=== PATIENT | female | born 1940 | race Caucasian/White ===

== ENCOUNTER → 2017-06-29 | Outpatient (CLI) | payer MEDICARE, OTHER ==
[~2017-06-29] MED LIST: ASP325 PO; HCTZ25 PO; KET10 PO; LISI-362 PO; METF-410 PO; PER PO; ROSU5TAB8 PO
--- NOTE | 2017-06-29 15:00 | RADIOLOGY IMAGING REPORT ---
FACILITY: [facility] PATIENT NAME: Alyssa Harper : 1940 MR: [id number] V: [id number] EXAM DATE: ORDERING PHYSICIAN: BLUE MCCOLLUM TECHNOLOGIST: Location: [facility] Patient: Alyssa Harper : 1940 Visit/Account:[id number] Date of Sevice: 06/29/2017 Exam type: CHEST PA AND LAT History: Cough, shortness of breath, difficulty breathing x3 days Comparison: October 15, 2016. Findings: There is mild increased peribronchial markings throughout the lungs. No lobar infiltrate seen. Ther e is no evidence of pleural effusions or overt pulmonary edema. Cardiac silhouette is normal in size . IMPRESSION: 1. Mild increased perihilar bronchial thickening throughout the lungs may represent an acute peribro nchial inflammatory process Report Dictated By: Marva Josue MD at 06/29/2017 2:52 PM Report E-Signed By: Marva Josue MD at 06/29/2017 2:56 PM WSN:[id number]
== END ==
LOC: RAD 13:37
PROVIDERS: ATTEND Family Medicine
DX: R91.8 Other nonspecific abnormal finding of lung field (principal)
CPT/HCPCS: 71046

== ENCOUNTER 2017-07-01 15:23 | Inpatient (IN) | payer MEDICARE, OTHER ==
[~2017-07-01] VITALS: Ht 165.1 cm; Wt 81.6 kg
[~2017-07-01 15:23] MED LIST changes: -METF-410 PO; -ROSU5TAB8 PO
--- NOTE | 2017-07-01 15:25 | ER Report ---
History and Physical Time Seen By MD: 15:24 Hx. of Stated Complaint: cough sob since tuesday HPI/ROS 77 year old female active smoker who stopped last tuesday, fever cough congestion body aches since tuesday finished zpack 1 day ago Remainder of the 14 system rev: Yes Allergies: Coded Allergies: Penicillins (Verified Allergy, Intermediate, FELT FUNNY, 07/01/17) Uncoded Allergies: msg (Adverse Reaction, Intermediate, HEADACHE, 01/24/12) Home Meds Reported Medications Metformin Hcl (METFORMIN HCL) 500 Mg Tablet, 1 TAB PO BID, TAB 07/01/17 Rosuvastatin Calcium (CRESTOR) 5 Mg Tablet, 5 MG PO QDAY 07/01/17 Hydrochlorothiazide (HYDROCHLOROTHIAZIDE (OR EQUIV)) 25 Mg Tab, 25 MG PO QDAY 01/18/12 Lisinopril (Lisinopril) 10 Mg Tablet, 10 MG PO QDAY 01/18/12 Discontinued Reported Medications Ketorolac Tromethamine (Toradol) 10 Mg Tab, 10 MG PO Q6H, #16 TAKE WITH FOOD. 01/25/12 Oxycodone/Acetaminophen (OXYCODONE/ACETAMINOPHEN 5MG/325 MG) 5 Mg/325 Mg Tab, 1 - 2 TAB PO Q4H Y, #30 01/25/12 Past Medical/Surgical History Strip headaches, hypertension, COPD, arthritis, Hx Smoking: Yes (PPD) Smoking Status: Former Smoker (5 days ) Exposure to Second Hand Smoke?: No Hx Substance Use Disorder: No Hx Alcohol Use: No Family History of: HTN Constitutional Vital Sign - Last 24 Hours 07/01/17 07/01/17 07/01/17 07/01/17 15:28 15:29 15:30 15:38 Pulse 101 86 Resp 20 B/P (MAP) 129/72 129/72 (91) Pulse Ox 76 95 O2 Delivery Room Air O2 Flow Rate 3.0 07/01/17 07/01/17 07/01/17 07/01/17 15:40 15:50 15:53 16:08 Pulse 81 84 81 80 Resp 12 16 Pulse Ox 94 94 07/01/17 07/01/17 07/01/17 07/01/17 16:23 16:32 16:38 16:43 Pulse ??? 83 86 B/P (MAP) 113/69 (84) Pulse Ox 96 95 07/01/17 07/01/17 07/01/17 07/01/17 16:58 17:00 17:13 17:27 Pulse 81 81 B/P (MAP) 120/68 (85) 130/65 (86) Pulse Ox 95 94 07/01/17 07/01/17 07/01/17 07/01/17 17:28 17:30 17:43 17:48 Pulse 77 79 77 B/P (MAP) 124/73 (90) Pulse Ox 89 94 96 07/01/17 07/01/17 07/01/17 07/01/17 17:53 18:00 18:08 18:23 Pulse 75 78 75 B/P (MAP) 122/68 (86) Pulse Ox 96 95 95 07/01/17 07/01/17 07/01/17 07/01/17 18:30 18:38 18:53 19:00 Pulse 75 78 B/P (MAP) 117/84 (95) 117/84 (95) Pulse Ox 96 07/01/17 07/01/17 07/01/17 07/01/17 19:08 19:23 19:30 19:38 Pulse 79 77 76 B/P (MAP) 125/73 (90) Pulse Ox 91 91 90 07/01/17 19:43 Pulse 73 Pulse Ox 92 Intake and Output 07/01/17 07/01/17 07/02/17 15:00 23:00 07:00 Intake Total 250 ml Balance 250 ml Physical Exam General Appearance: [The patient is alert, has no immediate need for airway protection and no current signs of toxicity.] [ ] Eyes: Pupils equal and round no injection. Respiratory: Coarse breath sounds bilaterally Cardiac: regular rate and rhythm [ ] Gastrointestinal: Abdomen is soft and non tender, no masses, bowel sounds normal. Musculoskeletal: Neck: Neck is supple and non tender. Extremities have full range of motion and are non tender. Skin: No rashes or lesions. [ ] DIFFERENTIAL DIAGNOSIS: After history and physical exam differential diagnosis was considered for bronchitis, pneumonia influenza [ ] Medical Decision Making Data Points Result Diagram: 07/01/17 1548 07/01/17 1548 Laboratory Hematology Test 07/01/17 00:00 07/01/17 15:48 07/01/17 17:48 Urine Color Yellow Urine Clarity Clear Urine pH 5.0 pH (4.8-9.5) Urine Specific [place] 1.008 Urine Protein Negative mg/dL (NEGATIVE) Urine Glucose (UA) Negative mg/dL (NEGATIVE) Urine Ketones Negative mg/dL (NEGATIVE) Urine Blood Negative (NEGATIVE) Urine Nitrite Negative (NEGATIVE) Urine Bilirubin Negative (NEGATIVE) Urine Urobilinogen 2.0 mg/dL (0.2-1.9) Urine Leukocyte Esterase Negative (NEGATIVE) Urine RBC <1 /HPF (0-2/HPF) Urine WBC <1 /HPF (0-5/HPF) Urine Squamous Epithelial Cells Many /LPF (</=FEW) Urine Bacteria Few /HPF (NONE-FEW) Urine Mucus None /HPF (NONE-FEW) Influenza Virus Type A (PCR) Negative (NEGATIVE) Influenza Virus Type B (PCR) Negative (NEGATIVE) Red Blood Count 5.63 M/uL (4.17-5.56) Mean Corpuscular Volume 85.7 fL (80.0-96.0) Mean Corpuscular Hemoglobin 29.4 pg (26.0-33.0) Mean Corpuscular Hemoglobin Concent 34.3 g/dL (32.0-36.0) Red Cell Distribution Width 13.8 % (11.5-14.5) Mean Platelet Volume 7.5 fL (7.2-11.1) Neutrophils (%) (Auto) 82.3 % (39.4-72.5) Lymphocytes (%) (Auto) 8.5 % (17.6-49.6) Monocytes (%) (Auto) 8.7 % (4.1-12.4) Eosinophils (%) (Auto) 0.2 % (0.4-6.7) Basophils (%) (Auto) 0.3 % (0.3-1.4) Nucleated RBC Relative Count (auto) 0.1 /100WBC Neutrophils # (Auto) 10.7 K/uL (2.0-7.4) Lymphocytes # (Auto) 1.1 K/uL (1.3-3.6) Monocytes # (Auto) 1.1 K/uL (0.3-1.0) Eosinophils # (Auto) 0.0 K/uL (0.0-0.5) Basophils # (Auto) 0.0 K/uL (0.0-0.1) Nucleated RBC Absolute Count (auto) 0.02 K/uL Peripheral Blood Smear Yes Y/N Venous Blood pH 7.42 (7.31-7.41) Sodium Level 125 mmol/L (137-145) Potassium Level 4.0 mmol/L (3.5-5.0) Chloride Level 85 mmol/L (98-107) Carbon Dioxide Level 30 mmol/L (22-31) Blood Urea Nitrogen 16 mg/dl (7-18) Creatinine 0.70 mg/dl (0.52-1.04) Glomerular Filtration Rate Calc > 60.0 Random Glucose 144 mg/dl (75-110) Lactate 1.8 mmol/L (0.7-2.1) Calcium Level 8.2 mg/dl (8.4-10.2) Magnesium Level 1.6 mg/dl (1.7-2.2) Total Bilirubin 0.9 mg/dl (0.2-1.3) Aspartate Amino Transf (AST/SGOT) 42 U/L (0-35) Alanine Aminotransferase (ALT/SGPT) 47 U/L (0-56) Alkaline Phosphatase 75 U/L (0-126) Total Protein 5.8 gm/dl (6.3-8.2) Albumin 3.1 g/dl (3.5-5.0) Troponin I 0.091 ng/ml Chemistry Test 07/01/17 00:00 07/01/17 15:48 07/01/17 17:48 Urine Color Yellow Urine Clarity Clear Urine pH 5.0 pH (4.8-9.5) Urine Specific [place] 1.008 Urine Protein Negative mg/dL (NEGATIVE) Urine Glucose (UA) Negative mg/dL (NEGATIVE) Urine Ketones Negative mg/dL (NEGATIVE) Urine Blood Negative (NEGATIVE) Urine Nitrite Negative (NEGATIVE) Urine Bilirubin Negative (NEGATIVE) Urine Urobilinogen 2.0 mg/dL (0.2-1.9) Urine Leukocyte Esterase Negative (NEGATIVE) Urine RBC <1 /HPF (0-2/HPF) Urine WBC <1 /HPF (0-5/HPF) Urine Squamous Epithelial Cells Many /LPF (</=FEW) Urine Bacteria Few /HPF (NONE-FEW) Urine Mucus None /HPF (NONE-FEW) Influenza Virus Type A (PCR) Negative (NEGATIVE) Influenza Virus Type B (PCR) Negative (NEGATIVE) White Blood Count 13.0 k/uL (4.5-11.0) Red Blood Count 5.63 M/uL (4.17-5.56) Hemoglobin 16.5 g/dL (12.0-16.0) Hematocrit 48.2 % (34.0-47.0) Mean Corpuscular Volume 85.7 fL (80.0-96.0) Mean Corpuscular Hemoglobin 29.4 pg (26.0-33.0) Mean Corpuscular Hemoglobin Concent 34.3 g/dL (32.0-36.0) Red Cell Distribution Width 13.8 % (11.5-14.5) Platelet Count 242 K/uL (150-450) Mean Platelet Volume 7.5 fL (7.2-11.1) Neutrophils (%) (Auto) 82.3 % (39.4-72.5) Lymphocytes (%) (Auto) 8.5 % (17.6-49.6) Monocytes (%) (Auto) 8.7 % (4.1-12.4) Eosinophils (%) (Auto) 0.2 % (0.4-6.7) Basophils (%) (Auto) 0.3 % (0.3-1.4) Nucleated RBC Relative Count (auto) 0.1 /100WBC Neutrophils # (Auto) 10.7 K/uL (2.0-7.4) Lymphocytes # (Auto) 1.1 K/uL (1.3-3.6) Monocytes # (Auto) 1.1 K/uL (0.3-1.0) Eosinophils # (Auto) 0.0 K/uL (0.0-0.5) Basophils # (Auto) 0.0 K/uL (0.0-0.1) Nucleated RBC Absolute Count (auto) 0.02 K/uL Peripheral Blood Smear Yes Y/N Venous Blood pH 7.42 (7.31-7.41) Glomerular Filtration Rate Calc > 60.0 Lactate 1.8 mmol/L (0.7-2.1) Calcium Level 8.2 mg/dl (8.4-10.2) Magnesium Level 1.6 mg/dl (1.7-2.2) Total Bilirubin 0.9 mg/dl (0.2-1.3) Aspartate Amino Transf (AST/SGOT) 42 U/L (0-35) Alanine Aminotransferase (ALT/SGPT) 47 U/L (0-56) Alkaline Phosphatase 75 U/L (0-126) Total Protein 5.8 gm/dl (6.3-8.2) Albumin 3.1 g/dl (3.5-5.0) Troponin I 0.091 ng/ml Urinalysis Test 07/01/17 00:00 Urine Color Yellow Urine Clarity Clear Urine pH 5.0 pH (4.8-9.5) Urine Specific [place] 1.008 Urine Protein Negative mg/dL (NEGATIVE) Urine Glucose (UA) Negative mg/dL (NEGATIVE) Urine Ketones Negative mg/dL (NEGATIVE) Urine Blood Negative (NEGATIVE) Urine Nitrite Negative (NEGATIVE) Urine Bilirubin Negative (NEGATIVE) Urine Urobilinogen 2.0 mg/dL (0.2-1.9) Urine Leukocyte Esterase Negative (NEGATIVE) Urine RBC <1 /HPF (0-2/HPF) Urine WBC <1 /HPF (0-5/HPF) Urine Squamous Epithelial Cells Many /LPF (</=FEW) Urine Bacteria Few /HPF (NONE-FEW) Urine Mucus None /HPF (NONE-FEW) EKG/Imaging EKG Interpretation EKG at 1645 normal sinus rhythm ventricular rate 82 QTc is 420 7 repeat EKG at 1730 normal sinus rhythm ventricular rate 80 QTCs for 24 Imaging FACILITY: [facility] [place] PATIENT NAME: Alyssa Harper : 1940 MR: [id number] V: [id number] EXAM DATE: ORDERING PHYSICIAN: PROSPER ARANGO TECHNOLOGIST: Location: [facility] [place]: Alyssa Harper : 1940 Visit/Account:[id number] Date of Sevice: 07/01/2017 CHEST PA AND LAT COMPARISONS: June 29, 2017 ADDITIONAL PERTINENT HISTORY: Fever FINDINGS: Cardiomediastinal silhouette: Negative. 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 Lung price: Continued findings of mild underlying peribronchial thickening with findings concerning for developing infiltrate involving the right middle lobe. Pleural spaces: Negative. Osseous structures: Negative. Surrounding soft tissues: Negative. IMPRESSION: 1. Continued findings of mild underlying bronchitic change with findings concerning for developing infiltrate involving the right middle lobe. Report Dictated By: Wu Dee MD at 07/01/2017 4:37 PM Report E-Signed By: Wu Dee MD at 07/01/2017 4:38 PM WSN:[id number] ED Course/Re-evaluation Clinical Indication for ER IV: Hydration ED Course Patient failed outpatient treatment for pneumonia and finished Z-Pee yesterday progressive shortness of breath sats are 77% without oxygen she does not have oxygen at home was given 3 L of oxygen here with DuoNeb treatment sats raise to the mid 90s also noted patient has a sodium of 125 was given some normal saline decided 100 mL an hour in the emergency room and noted she is on HCTZ and lisinopril Re-evaluation Physical evaluated by Dr. Den Huizar in the emergency room patient will be admitted for further evaluation Decision to Disposition Date: Jul 01, 2017 Decision to Disposition Time: 18:31 Depart Departure Latest Vital Signs Vital Signs Date Time Temp Pulse Resp B/P (MAP) Pulse Ox O2 Delivery O2 Flow Rate FiO2 07/01/17 19:43 73 92 07/01/17 19:30 125/73 (90) 07/01/17 15:50 16 07/01/17 15:30 3.0 07/01/17 15:28 Room Air Impression: Primary Impression: Pneumonia Additional Impressions: Hypoxia Hyponatremia Condition: Improved Disposition: Admitted from ER Referrals: BLUE MCCOLLUM DO (PCP) Problem Qualifiers PROSPER ARANGO Jul 01, 2017 15:25
[2017-07-01] MEDS ORDERED: NS(*) 0.9% 1000 ML BAG 1,000 ML IV ONE (15:28)
[2017-07-01] MEDS ORDERED: ALBUTEROL/IPRATROPIUM 3 ML NEB NEB ONE (15:30)
[2017-07-01] MEDS ORDERED: ROSU5TAB8 PO (15:35)
[2017-07-01] MEDS ORDERED: METF-410 PO (15:35)
[2017-07-01 16:12] LABS: PLATELET COUNT, AUTOMATED 242 K/uL (150-450)
[2017-07-01] MEDS ORDERED: MAGNESIUM SUL/D5W* 1 GM/100 ML 100 ML IVPB ONE (16:35)
--- NOTE | 2017-07-01 16:44 | RADIOLOGY IMAGING REPORT ---
FACILITY: [facility] PATIENT NAME: Alyssa Harper : 1940 MR: [id number] V: [id number] EXAM DATE: ORDERING PHYSICIAN: PROSPER ARANGO TECHNOLOGIST: Location: [facility] [place] Patient: Alyssa Harper : 1940 Visit/Account:[id number] Date of Sevice: 07/01/2017 CHEST PA AND LAT COMPARISONS: June 29, 2017 ADDITIONAL PERTINENT HISTORY: Fever FINDINGS: Cardiomediastinal silhouette: Negative. 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 Lung price: Continued findings of mild underlying peribronchial thickening with findings concerning for developing infiltrate involving the right middle lobe. Pleural spaces: Negative. Osseous structures: Negative. Surrounding soft tissues: Negative. IMPRESSION: 1. Continued findings of mild underlying bronchitic change with findings concerning for developing in filtrate involving the right middle lobe. Report Dictated By: Wu Dee MD at 07/01/2017 4:37 PM Report E-Signed By: Wu Dee MD at 07/01/2017 4:38 PM WSN:[id number]
[2017-07-01] MEDS ORDERED: ASPIRIN 81 MG CHEW PO ONE (16:50)
[2017-07-01] MEDS ORDERED: LEVOFLOXACIN/D5W 750 MG/150 ML 150 ML IVPB ONE (17:05)
--- NOTE | 2017-07-01 17:16 | EKG ---
FACILITY: [facility] PATIENT NAME: LUBA BRITO : [id number] MR: [id number] V: [id number] EXAM DATE: ORDERING PHYSICIAN: PROSPER ARANGO TECHNOLOGIST: DORIS Test Reason : SOB Blood Pressure : / mmHG Vent. Rate : 082 BPM Atrial Rate : 082 BPM P-R Int : 182 ms QRS Dur : 084 ms QT Int : 366 ms P-R-T Axes : 052 -27 049 degrees QTc Int : 427 ms Normal sinus rhythm R wave progression consistent with an old ant/sep [place] vs lead placement No ST-T abnormalities No Previous to compare Confirmed by MEGAN GARCIA ([id number]) on 07/01/2017 6:38:13 PM Referred By: MAIA Confirmed By:MEGAN GARCIA
--- NOTE | 2017-07-01 17:45 | EKG ---
FACILITY: [facility] PATIENT NAME: LUBA BRITO : [id number] MR: [id number] V: [id number] EXAM DATE: ORDERING PHYSICIAN: PROSPER ARANGO TECHNOLOGIST: DORIS Test Reason : REPEAT Blood Pressure : / mmHG Vent. Rate : 080 BPM Atrial Rate : 080 BPM P-R Int : 194 ms QRS Dur : 082 ms QT Int : 368 ms P-R-T Axes : 051 -42 025 degrees QTc Int : 424 ms Normal sinus rhythm Left axis deviation Poor R wave progression consistent with an old ant/sep [place] vs lead placement No ST-T abnormalities When compared with ECG of 01-JUL-2017 16:45, Relatively unchanged Confirmed by MEGAN GARCIA ([id number]) on 07/01/2017 6:39:23 PM Referred By: MAIA Confirmed By:MEGAN GARCIA
[2017-07-01] MEDS ORDERED: GUAIFENESIN/DEXTROMETHORPHAN 5 ML PO PRN (20:05)
[2017-07-01] MEDS ORDERED: ALBUTEROL 2.5 MG/3 ML NEB NEB PRN (20:05)
[2017-07-01] MEDS ORDERED: ACETAMINOPHEN 325 MG TAB PO PRN (20:05)
[2017-07-01] MEDS ORDERED: BENZONATATE 100 MG CAP PO PRN (20:05)
[2017-07-01] MEDS ORDERED: INSULIN HUM LISPRO 100 UN/ML 3 ML VIAL SUBQ PRN (20:05)
[2017-07-01 20:26] VITALS: BP 129/72
--- NOTE | 2017-07-01 20:40 | History & Physical ---
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 The cough started about a week ago. She reports clear sputum production with the cough. She saw her PCP about 4 days ago. She had a CXR that was concerning for a developing pneumonia and was started on azithromycin. Her cough has not improved, so she called her PCP's office and they directed her to the ER. She denies f/c/diarrhea/nausea/cp/sob/orthopnea. She has had mild constipation. She hasn't been able to sleep well because of the cough. She woke up with a matted right eye today and noticed some swelling under the eye. She denies any vision changes, eye pain, or eye itchiness. She has been on Lisinopril for many years. She stopped smoking 4 days ago, but admits to smoking for over 50 years at about 1/2 ppd. She reports really increasing her fluid intake for the last couple of days. Also, she had normal labs except elevated Hgb through the health fair a couple of weeks ago. In the ER, she was noted to have some increased WOB and hypoxia. She was given a DuoNeb and Levofloxacin. History Problems: (1) HTN (hypertension) Status: Chronic (2) Hyperlipemia Status: Chronic (3) T2DM (type 2 diabetes mellitus) Status: Chronic (4) Macular degeneration (5) History of cholecystectomy Home Meds Reported Medications Metformin Hcl (METFORMIN HCL) 500 Mg Tablet, 1 TAB PO BID, TAB 07/01/17 Rosuvastatin Calcium (CRESTOR) 5 Mg Tablet, 5 MG PO QDAY 07/01/17 Hydrochlorothiazide (HYDROCHLOROTHIAZIDE (OR EQUIV)) 25 Mg Tab, 25 MG PO QDAY 01/18/12 Lisinopril (Lisinopril) 10 Mg Tablet, 10 MG PO QDAY 01/18/12 Discontinued Reported Medications Ketorolac Tromethamine (Toradol) 10 Mg Tab, 10 MG PO Q6H, #16 TAKE WITH FOOD. 01/25/12 Oxycodone/Acetaminophen (OXYCODONE/ACETAMINOPHEN 5MG/325 MG) 5 Mg/325 Mg Tab, 1 - 2 TAB PO Q4H Y, #30 01/25/12 Allergies: Coded Allergies: Penicillins (Verified Allergy, Intermediate, FELT FUNNY, 07/01/17) Uncoded Allergies: msg (Adverse Reaction, Intermediate, HEADACHE, 01/24/12) Other Social/Family Hx No alcohol use. Lives alone. Hx Smoking: Yes (PPD) Review of Systems All Systems Reviewed/Normal: Yes, Except as Noted Exam Vital Signs Vital Signs Date Time Temp Pulse Resp B/P (MAP) Pulse Ox O2 Delivery O2 Flow Rate FiO2 07/01/17 19:58 75 91 07/01/17 19:30 125/73 (90) 07/01/17 15:50 16 07/01/17 15:30 3.0 07/01/17 15:28 Room Air General Appearance: Alert, Awake, No Acute Distress Neuro: No Gross deficits Eyes: PERRLA, Other (Injected sclera diffusely R>L with matting medially bilaterally) ENT: Moist Mucous Membranes, Posterior Pharynx Clear Cardiovascular: Regular Rate and Rhythm, No JVD Respiratory: Clear to Auscultation GI: Abd Soft and Non-Tender Extremities: No Edema Integumentary: No Jaundice, No Cyanosis Medical Decision Making Data Points Result Diagram: 07/01/17 1548 07/01/17 1548 Item Value Date Time Neutrophils (%) (Auto) 82.3 % H 07/01/17 1548 Lymphocytes (%) (Auto) 8.5 % L 07/01/17 1548 Monocytes (%) (Auto) 8.7 % 07/01/17 1548 Eosinophils (%) (Auto) 0.2 % L 07/01/17 1548 Basophils (%) (Auto) 0.3 % 07/01/17 154 Nucleated RBC Relative Count (auto) 0.1 /100WBC 07/01/17 1548 Venous Blood pH 7.42 H 07/01/17 1548 Lactate 1.8 mmol/L 07/01/17 1548 Magnesium Level 1.6 mg/dl L 07/01/17 1548 Troponin I 0.091 ng/ml 07/01/17 1748 Troponin I 0.110 ng/ml 07/01/17 1548 Total Bilirubin 0.9 mg/dl 07/01/17 1548 Aspartate Amino Transf (AST/SGOT) 42 U/L H 07/01/17 1548 Alanine Aminotransferase (ALT/SGPT) 47 U/L 07/01/17 1548 Alkaline Phosphatase 75 U/L 07/01/17 1548 Calcium Level 8.2 mg/dl L 07/01/17 1548 Influenza Virus Type A (PCR) Negative 07/01/17 0000 Influenza Virus Type B (PCR) Negative 07/01/17 0000 Sodium Level 125 mmol/L *L 07/01/17 1548 EKG / Imaging EKG Interpretation Vent. Rate : 080 BPM Atrial Rate : 080 BPM P-R Int : 194 ms QRS Dur : 082 ms QT Int : 368 ms P-R-T Axes : 051 -42 025 degrees QTc Int : 424 ms Normal sinus rhythm Left axis deviation Poor R wave progression consistent with an old ant/sep ND vs lead placement No ST-T abnormalities When compared with ECG of 01-JUL-2017 16:45, Relatively unchanged Confirmed by MEGAN GARCIA ([id number]) on 07/01/2017 6:39:23 PM Imaging CXR - 1. Continued findings of mild underlying bronchitic change with findings concerning for developing infiltrate involving the right middle lobe. Assessment and Plan Problems: (1) Bronchitis Status: Acute Assessment & Plan: She presented with about a weeks worth of coughing, hypoxia and leukocytosis. CXR was reported as concerning for a developing infiltrate in the RML, but compared to 2017 CXR it looks unchanged. Likely, with her long smoking h/o she has COPD and has developed an acute bronchitis. She was started on Levofloxacin in the ER, which will be continued. She is to be started on DuoNebs and Prednisone. We will try Tessalon Perles, Robitussin DM, Mucinex and albuterol prn for the cough. (2) Hyponatremia Status: Acute Assessment & Plan: Likely, secondary to the bronchitis and the excessive fluid intake. Will get a U Sodium and U Osm. She reports normal health fair labs about 2 weeks ago. She is having difficulty giving a urine sample so will have staff check a PVR with the bladder US after voiding. (3) Elevated troponin Status: Acute Assessment & Plan: It is in the borderline region. ECG without acute changes. Will follow troponin. (4) Conjunctivitis Status: Acute Assessment & Plan: She has injected sclera bilaterally R>L with matting bilaterally, so will start Ciprofloxacin eye drops. (5) Polycythemia Status: Chronic Assessment & Plan: Secondary to smoking and possibly chronic hypoxia. Will follow. (6) T2DM (type 2 diabetes mellitus) Status: Chronic Assessment & Plan: She only takes metformin 500mg qday. Will hold for now and check glucose AC and HS with SSI level 2 to cover. (7) Hyperlipemia Status: Chronic Assessment & Plan: Continue chronic Crestor. (8) HTN (hypertension) Status: Chronic Assessment & Plan: Continue chronic HCTZ and lisinopril with parameters. Copies to: BLUE MCCOLLUM DO Venous Thromboembolism Antithrombotics Is Pt On Any Antithrombotics?: No Exam Sepsis Risk: No Definite Risk MEGAN GARCIA MD Jul 01, 2017 20:40
[2017-07-01] MEDS: ROSUVASTATIN CALCIUM 10 MG TAB PO SCH ×2 (21:00→21:24)
[2017-07-01] MEDS: guaiFENesin 600 MG TABCR PO SCH (21:23)
[2017-07-01] MEDS: CIPROFLOXACIN HCL 0.3% OU SCH (21:24)
[2017-07-01] MEDS: predniSONE 20 MG TAB PO SCH (21:24)
[2017-07-01 23:01] VITALS: BP 112/77
[2017-07-02 03:03] VITALS: BP 123/74
[2017-07-02] MEDS: ALBUTEROL/IPRATROPIUM 3 ML NEB NEB SCH ×3 (05:31→17:14)
[2017-07-02 06:38] LABS: PLATELET COUNT, AUTOMATED 235 K/uL (150-450)
[2017-07-02 08:17] VITALS: BP 133/86
[2017-07-02] MEDS ORDERED: HYDROCHLOROTHIAZIDE 25 MG TAB PO SCH (09:00)
[2017-07-02] MEDS: CIPROFLOXACIN HCL 0.3% OU SCH ×4 (09:50→21:02)
[2017-07-02] MEDS: guaiFENesin 600 MG TABCR PO SCH ×2 (09:51→21:02)
[2017-07-02] MEDS: LISINOPRIL 10 MG TAB PO SCH (09:51)
[2017-07-02] MEDS: metFORMIN HCL XR 500 MG TABCR PO SCH ×2 (09:51→21:02)
[2017-07-02] MEDS: predniSONE 20 MG TAB PO SCH (09:51)
[2017-07-02] MEDS: ENOXAPARIN 40 MG/0.4ML SYR SC SCH (09:52)
[2017-07-02 11:02] VITALS: BP 127/76
--- NOTE | 2017-07-02 11:08 | Hospitalist Progress Note ---
Subjective Progress Notes Subjective This patient was admitted for bronchitis. She had no acute events overnight. Patient Complains of: Cardiovascular: No: Chest Pain Respiratory: No: Shortness of Breath Physical Exam Vital Signs Date Time Temp Pulse Resp B/P (MAP) Pulse Ox O2 Delivery O2 Flow Rate FiO2 07/02/17 08:17 97.8 69 18 133/86 (102) 94 Nasal Cannula 2.0 Intake and Output 07/03/17 07:00 Intake Total 600 ml Balance 600 ml Intake Oral 600 ml # Voids 1 # Bowel Movements 1 Cardiovascular: Regular Rate and Rhythm Respiratory: Clear to Auscultation Result Diagram: 07/02/17 0607 07/02/17 0607 Item Value Date Time Sputum Culture - Preliminary Resulted 07/01/17 1741 Sputum Expectorated Blood Culture - Preliminary Resulted 07/01/17 1602 Blood Peripheral Draw NO GROWTH AFTER 1 DAY, REINCUBATED Blood Culture - Preliminary Resulted 07/01/17 1548 Blood Peripheral Draw NO GROWTH AFTER 1 DAY, REINCUBATED Assessment and Plan Problems: (1) Bronchitis Status: Acute Assessment & Plan: She presented with about a weeks worth of coughing, hypoxia and leukocytosis. CXR was reported as concerning for a developing infiltrate in the RML, but compared to 2017 CXR it looks unchanged. Likely, with her long smoking h/o she has COPD and has developed an acute bronchitis. She was started on Levofloxacin in the ER, which will be continued. She is to be started on DuoNebs and Prednisone. We will try Tessalon Perles, Robitussin DM, Mucinex and albuterol prn for the cough. (2) Hyponatremia Status: Acute Assessment & Plan: Her urine is dilute, but she is excreted an inappropriate amount of sodium. This is most likely exacerbated by her hydrochlorothiazide. We have discontinued this and placed her on a fluid restriction. A repeat chemistry is ordered for the morning. (3) Elevated troponin Status: Acute Assessment & Plan: Her troponin was equivocal, but her EKG's have not shown any changes. (4) Conjunctivitis Status: Acute Assessment & Plan: She has injected sclera bilaterally R>L with matting bilaterally, so will start Ciprofloxacin eye drops. (5) Polycythemia Status: Chronic Assessment & Plan: Secondary to smoking and possibly chronic hypoxia. Will follow. (6) T2DM (type 2 diabetes mellitus) Status: Chronic Assessment & Plan: She is on chronic treatment with metformin and we have also added sliding scale level #2. (7) Hyperlipemia Status: Chronic Assessment & Plan: Continue chronic Crestor. (8) HTN (hypertension) Status: Chronic Assessment & Plan: She is on chronic treatment with lisinopril. Her hydrochlorothiazide has been held as above. Exam Sepsis Risk: No Definite Risk SHARI ARREGUIN DO Jul 02, 2017 11:08
[2017-07-02 15:45] VITALS: BP 107/62
[2017-07-02 16:29] VITALS: Ht 165.1 cm; Wt 81.6 kg
[2017-07-02] MEDS ORDERED: LEVOFLOXACIN 750 MG TAB PO SCH (18:00)
[2017-07-02] MEDS ORDERED: LEVOFLOXACIN/D5W 750 MG/150 ML 150 ML IVPB SCH (18:30)
[2017-07-02 19:18] VITALS: BP 142/90
[2017-07-02] MEDS: ROSUVASTATIN CALCIUM 10 MG TAB PO SCH (21:03)
[2017-07-03 02:16] VITALS: BP 122/77
[2017-07-03] MEDS: ALBUTEROL/IPRATROPIUM 3 ML NEB NEB SCH ×2 (05:17→11:20)
[2017-07-03 07:29] VITALS: BP 118/82
[2017-07-03] MEDS: LISINOPRIL 10 MG TAB PO SCH ×2 (09:00→10:04)
[2017-07-03] MEDS: metFORMIN HCL XR 500 MG TABCR PO SCH (10:05)
[2017-07-03] MEDS: ENOXAPARIN 40 MG/0.4ML SYR SC SCH (10:05)
[2017-07-03] MEDS: predniSONE 20 MG TAB PO SCH (10:06)
[2017-07-03] MEDS: guaiFENesin 600 MG TABCR PO SCH (10:06)
[2017-07-03] MEDS: CIPROFLOXACIN HCL 0.3% OU SCH (10:06)
[2017-07-03] MEDS ORDERED: CIPR2.5D14 OU (10:27)
[2017-07-03] MEDS ORDERED: LEVO750T27 PO (10:27)
[2017-07-03] MEDS ORDERED: PRED20TA6 PO (10:27)
--- NOTE | 2017-07-03 10:39 | Hospitalist Depart ---
Discharge Summary Reason for Hosp/Final Diag: (1) Bronchitis Status: Acute Hospital Course & Plan: She presented with about a weeks worth of coughing, hypoxia and leukocytosis. CXR was reported as concerning for a developing infiltrate in the RML, but compared to 2017 CXR it looks unchanged. Likely, with her long smoking h/o she has COPD and has developed an acute bronchitis. She was started on Levofloxacin/Prednisone and is improving. She will go home on Levofloxacin and a Prednisone taper. (2) Hyponatremia Status: Acute Hospital Course & Plan: Likely, secondary to HCTZ use. Improving off of HCTZ. Will have her repeat the BMP as an outpatient. (3) Elevated troponin Status: Acute Hospital Course & Plan: Her troponin was equivocal and trended to normal. Likely, related to strain from illness. EKG's have not shown any changes. No chest pain. (4) Conjunctivitis Status: Acute Hospital Course & Plan: She has injected sclera bilaterally R>L with matting bilaterally, so was started pm Ciprofloxacin eye drops. She has had significant improvement. Home with a few more days of treatment. (5) Polycythemia Status: Chronic Hospital Course & Plan: Secondary to smoking and possibly chronic hypoxia. Stable since 2011. (6) T2DM (type 2 diabetes mellitus) Status: Chronic Hospital Course & Plan: She is on chronic treatment with metformin and her glucose is controlled even being on prednisone. (7) Hyperlipemia Status: Chronic Hospital Course & Plan: Continue chronic Crestor. (8) HTN (hypertension) Status: Chronic Hospital Course & Plan: She is on chronic treatment with lisinopril. Her hydrochlorothiazide will be stopped. Follow up with her PCP to check BP off HCTZ. Departure Weight (Pounds): 180 Result Diagram: 07/02/17 0607 07/03/17 0539 Item Value Date Time White Blood Count 10.3 k/uL 01/18/12 1034 White Blood Count 13.0 k/uL H 07/01/17 1548 White Blood Count 14.0 k/uL H 07/02/17 0607 Hemoglobin 16.5 g/dL H 07/01/17 1548 Hemoglobin 16.5 g/dL H 07/02/17 0607 Hemoglobin 17.0 g/dL H 01/18/12 1034 Platelet Count 242 K/uL 07/01/17 1548 Platelet Count 235 K/uL 07/02/17 0607 Venous Blood pH 7.42 H 07/01/17 1548 Sodium Level 125 mmol/L *L 07/01/17 1548 Sodium Level 125 mmol/L *L 07/02/17 0607 Chloride Level 85 mmol/L *L 07/01/17 1548 Chloride Level 87 mmol/L L 07/02/17 0607 Blood Urea Nitrogen 16 mg/dl 07/01/17 1548 Creatinine 0.70 mg/dl 07/01/17 1548 Blood Urea Nitrogen 12 mg/dl 07/02/17 0607 Creatinine 0.60 mg/dl 07/02/17 0607 Magnesium Level 1.6 mg/dl L 07/01/17 1548 Total Bilirubin 0.9 mg/dl 07/01/17 1548 Aspartate Amino Transf (AST/SGOT) 42 U/L H 07/01/17 1548 Alanine Aminotransferase (ALT/SGPT) 47 U/L 07/01/17 1548 Alkaline Phosphatase 75 U/L 07/01/17 1548 Troponin I 0.110 ng/ml 07/01/17 1548 Troponin I 0.091 ng/ml 07/01/17 1748 Troponin I 0.026 ng/ml 07/02/17 0607 Lactate 1.8 mmol/L 07/01/17 1548 Sodium Level 131 mmol/L L 07/03/17 0539 Potassium Level 3.8 mmol/L 07/03/17 0539 Chloride Level 91 mmol/L L 07/03/17 0539 Carbon Dioxide Level 31 mmol/L 07/03/17 0539 Creatinine 0.70 mg/dl 07/03/17 0539 Blood Urea Nitrogen 13 mg/dl 07/03/17 0539 Urine Osmolality 317 mosm/K L 07/01/17 0000 Urine Random Sodium 35 MEQ/L 07/01/17 0000 Influenza Virus Type A (PCR) Negative 07/01/17 0000 Influenza Virus Type B (PCR) Negative 07/01/17 0000 Blood cultures from 07/01 without growth x2. SPEC #: [id number] ELIZABETH: 07/01/17 STATUS: COMP REQ #: [id number] RECD: 07/01/[address]: PROSPER ARANGO MANAGER [employer] -C SOURCE: SPUTUM EXP ENTR: 07/01/17-1533 [facility] DR: BLUE MCCOLLUM DO [facility]: ORDERED: CULT SPUTUM Procedure Result Verified SPUTUM CULTURE Final 07/03/17-08 NORMAL RESPIRATORY RUPALI PRESENT. NO PATHOGENS ISOLATED Imaging CXR - 1. Continued findings of mild underlying bronchitic change with findings concerning for developing infiltrate involving the right middle lobe. EKG Vent. Rate : 082 BPM Atrial Rate : 082 BPM P-R Int : 182 ms QRS Dur : 084 ms QT Int : 366 ms P-R-T Axes : 052 -27 049 degrees QTc Int : 427 ms Normal sinus rhythm R wave progression consistent with an old ant/sep [place] vs lead placement No ST-T abnormalities No Previous to compare Confirmed by MEGAN GARCIA ([id number]) on 07/01/2017 6:38:13 PM Condition: Improved Discharge: Home Discharge Instructions Home Meds Active Scripts Prednisone (PREDNISONE) 20 Mg Tablet, 20 MG PO QDAY, #5 1 pill a day for 3 days, then 1/2 pill a day for 3 days Prov:MEGAN GARCIA MD 07/03/17 Levofloxacin 750 Mg Tab (LEVOFLOXACIN 750 MG TAB) 750 Mg Tablet, 750 MG PO QDAY@ 1800, #3 Prov:MEGAN GARCIA MD 07/03/17 Ciprofloxacin Hcl (CIPROFLOXACIN HCL) 2.5 Ml Drops, 0 ML OU QID, #1 BOTTLE Continue until eyes are clear for 48 hours or have taken for 5 days. Prov:MEGAN GARCIA MD 4/15/18 Reported Medications Metformin Hcl (METFORMIN HCL) 500 Mg Tablet, 1 TAB PO BID, TAB 07/01/17 Rosuvastatin Calcium (CRESTOR) 5 Mg Tablet, 5 MG PO QDAY 07/01/17 Lisinopril (Lisinopril) 10 Mg Tablet, 10 MG PO QDAY 01/18/12 Discontinued Reported Medications Hydrochlorothiazide (HYDROCHLOROTHIAZIDE (OR EQUIV)) 25 Mg Tab, 25 MG PO QDAY 01/18/12 Ketorolac Tromethamine (Toradol) 10 Mg Tab, 10 MG PO Q6H, #16 TAKE WITH FOOD. 01/25/12 Oxycodone/Acetaminophen (OXYCODONE/ACETAMINOPHEN 5MG/325 MG) 5 Mg/325 Mg Tab, 1 - 2 TAB PO Q4H Y, #30 01/25/12 Diet: Diabetic Activity: As Tolerated Special Instructions: Follow up with your PCP in 1-2 weeks to follow up O2 requirement and BP. Go to the ER for worsening SOB or fevers. Get a BMP/CBC in 5-7 days to follow up the sodium and hemoglobin. Copies to: BLUE MCCOLLUM DO Venous Thromboembolism Antithrombotics Is Pt On Any Antithrombotics?: No MEGAN GARCIA MD Jul 03, 2017 10:39
[2017-07-04] MEDS ORDERED: INFLUENZA VIRUS VAC 0.5 ML SYR IM ONLY ONE (09:00)
== END 2017-07-03 12:55 | disposition home or self-care (01) | DRG 191 ==
LOC: ER 15:47 → MED 19:50
PROVIDERS: ADMIT Internal Medicine; ATTEND Internal Medicine
DX: J44.0 Chronic obstructive pulmonary disease with (acute) lower respiratory infection (principal); E87.1 Hypo-osmolality and hyponatremia; T50.2X5A Adverse effect of carbonic-anhydrase inhibitors, benzothiadiazides and other diuretics, initial encounter; D75.1 Secondary polycythemia; E11.9 Type 2 diabetes mellitus without complications; I10 Essential (primary) hypertension; J20.9 Acute bronchitis, unspecified; E78.5 Hyperlipidemia, unspecified; H10.33 Unspecified acute conjunctivitis, bilateral; F17.210 Nicotine dependence, cigarettes, uncomplicated; R09.02 Hypoxemia; H35.30 Unspecified macular degeneration; D72.829 Elevated white blood cell count, unspecified; Z79.4 Long term (current) use of insulin; Z88.0 Allergy status to penicillin; Z90.49 Acquired absence of other specified parts of digestive tract
CPT/HCPCS: 36415; 36416; 71046; 81001; 82040; 82247; 82310; 82374; 82435; 82565; 82800; 82947; 82948; 83605; 83735; 83935; 84075; 84132; 84155; 84295; 84300; 84450; 84460; 84484; 84520; 85025; 87040; 87070; 87502; 93005; 94640; 94667; 94668; 99285; J1650; J1956; J3475; J7030; J7512

== ENCOUNTER 2017-07-04 06:49 | Outpatient (RCR) | payer MEDICARE, OTHER ==
[2017-07-02 16:29] VITALS: BMI 29.9
[~2017-07-04 06:49] MED LIST changes: +CIPR2.5D14 OU; +LEVO750T27 PO; +METF-411 PO; +PRED20TA6 PO; +ROSU5TAB8 PO
--- NOTE | 2017-07-04 14:20 | Transitional Care Management ---
Assessment Visit Type: Telephone Visit Spoke with: Alyssa Cardiac: WNL Respiratory: WNL Except Respiratory Comment: 07/04 Wearing O2 all the time, sats go down with activity, but she does not feel short of breath. GI: Nutrition: WNL Wt Gain/Loss: WNL Constipation?: No : WNL Musculoskeletal, Exercise: WNL Mobility/Falls: WNL Integumentary: WNL Feeling of Well Being: WNL Feeling of Well Being Comment: 07/04 I feel really good except for this cough. Socialization: WNL Socialization Comment: 07/04 good family support. Pain/Management: WNL Following Discharge Instructio: Yes TCM Discharge Criteria Transitional Care Comment: 07/02 She consents to the program. We discussed home and hospital meds, Bronchitis, with handout provided. 07/04 Call was brief, home visit scheduled for 1100 tomorrow. LEXY QUIROZ Jul 04, 2017 14:20
--- NOTE | 2017-07-05 13:53 | Transitional Care Management ---
Assessment Visit Type: Home Visit Spoke with: Alyssa Cardiac: WNL Except Cardiac Comment: 07/05 Reviewed meds, she is taking her BP a few times a day and keeping a record. BP during visit 149/87. Respiratory: WNL Except Respiratory Comment: 07/04 Wearing O2 all the time, sats go down with activity, but she does not feel short of breath. 07/05 She removes O2 for short tasks, lowest sat was 82% after taking out the trash. GI: Nutrition: WNL Wt Gain/Loss: WNL Constipation?: No : WNL Musculoskeletal, Exercise: WNL Musculoskeletal, Excercise Com: 07/05 With the oxygen she can't go to her regular pool excercises, but we discussed alternatives. She will ask at the rec center for suggestions. Mobility/Falls: WNL Mobility Comment: 07/05 We discussed fall prevention, and increased risk of falls with O2 tubing. Integumentary: WNL Feeling of Well Being: WNL Feeling of Well Being Comment: 07/04 I feel really good except for this cough. 07/05 She really wants to not have the oxygen, and her cough persists. Socialization: WNL Socialization Comment: 07/04 good family support. Pain/Management: WNL Scheduled Follow-Up with Provi: Yes (07/05 She will call for an appt with Dr Franklin for next week.) Questions for Future PCP Visit: 07/05 Need for continued O2, possible need for BP regimen changes since HCTZ has been stopped, Glucometer? Needed or Pending Tests: Yes (07/05 She has an order for labs.) Following Discharge Instructio: Yes TCM Discharge Criteria Medication Knowledge: 07/05 Reviewed discharge meds, prednisone taper. She was taking her Metformin daily, it is ordered BID, I clearified this with her. Transitional Care Comment: 07/02 She consents to the program. We discussed home and hospital meds, Bronchitis, with handout provided. 07/04 Call was brief, home visit scheduled for 1100 tomorrow. 07/05 Home visit, Discharge meds reviewed (she was taking metformin QD instead of BID), discussed oxygen use and safety, fall prevention. Handouts on O2 use in the home, O2 saftey, and fall prevention in older adults provided. Her home was not cluttered, open walkways, no throw rugs or trip hazzards, with two levels. The stairs she manages with ease. Copies to: BLUE FRANKLIN MICHAEL K Jul 05, 2017 13:53
--- NOTE | 2017-07-08 11:35 | Transitional Care Management ---
Assessment Spoke with: Alyssa Cardiac: WNL Except Cardiac Comment: 07/05 Reviewed meds, she is taking her BP a few times a day and keeping a record. BP during visit 149/87. Respiratory: WNL Except Respiratory Comment: 07/04 Wearing O2 all the time, sats go down with activity, but she does not feel short of breath. 07/05 She removes O2 for short tasks, lowest sat was 82% after taking out the trash. 07/08 At [facility] for PFT's and labs. States O2 up to 91% at home. Can have O2 delivered to [place], [place] for a vacation but states she doesn't want to go if she has to use O2 at that low elevation while having a vacation. Reports improved symptoms GI: Nutrition: WNL Wt Gain/Loss: WNL Constipation?: No : WNL Musculoskeletal, Exercise: WNL Musculoskeletal, Excercise Com: 07/05 With the oxygen she can't go to her regular pool excercises, but we discussed alternatives. She will ask at the [facility] center for suggestions. 07/08 states she has less strength. Enc her participation in Pulm Rehab next week as their goal is to preserve function Mobility/Falls: WNL Mobility Comment: 07/05 We discussed fall prevention, and increased risk of falls with O2 tubing. Integumentary: WNL Integumentary Comment: 07/08 She Called [facility] re: "big blood red spot on my hip". I visited in cardio after PFT"s and she has a yellow/green/blue/red area about 4"x3" on her RLQ where a lovenox inj was documented as being given. Reassured this was a fading bruise and not to be alarmed. Feeling of Well Being: WNL Feeling of Well Being Comment: 07/04 I feel really good except for this cough. 07/05 She really wants to not have the oxygen, and her cough persists. 07/08 Although arrangements are pending for delivery of O2 to her room in [place], she declines to have it if traveling. Reassured her they could have 2 Large replacement tanks and a concentrator delivered to her hotel prior to her arrival. Enc to f/u with PCP for direction. Socialization: WNL Socialization Comment: 07/04 good family support. Pain/Management: WNL Scheduled Follow-Up with Cheryl: Yes (07/05 She will call for an appt with Dr Franklin for next week. 07/08 Has appt for 2:30) Questions for Future PCP Visit: 07/05 Need for continued O2, possible need for BP regimen changes since HCTZ has been stopped, Glucometer? Needed or Pending Tests: Yes (07/05 She has an order for labs. 07/08 getting lab today) Following Discharge Instructio: Yes TCM Discharge Criteria Medication Knowledge: 07/05 Reviewed discharge meds, prednisone taper. She was taking her Metformin daily, it is ordered BID, I clearified this with her. 07/08 states she is still taking 1/2 tab of prednisone Transitional Care Comment: 07/02 She consents to the program. We discussed home and hospital meds, Bronchitis, with handout provided. 07/04 Call was brief, home visit scheduled for 1100 tomorrow. 07/05 Home visit, Discharge meds reviewed (she was taking metformin QD instead of BID), discussed oxygen use and safety, fall prevention. Handouts on O2 use in the home, O2 saftey, and fall prevention in older adults provided. Her home was not cluttered, open walkways, no throw rugs or trip hazzards, with two levels. The stairs she manages with ease. 07/08 Enc to discuss O2 use with PCP as she may not need it at lower elevation and that an overnoc oximetry test may be ordered. Enc use of O2 as ordered and to document O2 readings with her pulseox at home. EVANGELINA OSBORNE Jul 08, 2017 11:34
--- NOTE | 2017-07-14 14:38 | Transitional Care Management ---
Assessment Visit Type: Telephone Visit Spoke with: Alyssa Cardiac: WNL Except Cardiac Comment: 07/05 Reviewed meds, she is taking her BP a few times a day and keeping a record. BP during visit 149/87. Respiratory: WNL Except Respiratory Comment: 07/04 Wearing O2 all the time, sats go down with activity, but she does not feel short of breath. 07/05 She removes O2 for short tasks, lowest sat was 82% after taking out the trash. 07/08 At [facility] for PFT's and labs. States O2 up to 91% at home. Can have O2 delivered to [place], [place] for a vacation but states she doesn't want to go if she has to use O2 at that low elevation while having a vacation. Reports improved symptoms 07/14 She is very eager to stop using oxygen. She had an appt with Dr Franklin this week, who told her to keep using the oxygen. GI: Nutrition: WNL Wt Gain/Loss: WNL Constipation?: No : WNL Musculoskeletal, Exercise: WNL Musculoskeletal, Excercise Com: 07/05 With the oxygen she can't go to her regular pool excercises, but we discussed alternatives. She will ask at the rec center for suggestions. 07/08 states she has less strength. Enc her participation in Pulm Rehab next week as their goal is to preserve function 07/14 Pulm rehab starts tuesday. Mobility/Falls: WNL Mobility Comment: 07/05 We discussed fall prevention, and increased risk of falls with O2 tubing. Integumentary: WNL Integumentary Comment: 07/08 She Called [facility] re: "big blood red spot on my hip". I visited in cardio after PFT"s and she has a yellow/green/blue/red area about 4"x3" on her RLQ where a lovenox inj was documented as being given. Reassured this was a fading bruise and not to be alarmed. Feeling of Well Being: WNL Feeling of Well Being Comment: 07/04 I feel really good except for this cough. 07/05 She really wants to not have the oxygen, and her cough persists. 07/08 Although arrangements are pending for delivery of O2 to her room in [place], she declines to have it if traveling. Reassured her they could have 2 Large replacement tanks and a concentrator delivered to her hotel prior to her arrival. Enc to f/u with PCP for direction. Socialization: WNL Socialization Comment: 07/04 good family support. Pain/Management: WNL Scheduled Follow-Up with Provi: No Questions for Future PCP Visit: 07/05 Need for continued O2, possible need for BP regimen changes since HCTZ has been stopped, Glucometer? Needed or Pending Tests: Yes (07/05 She has an order for labs. 07/08 getting lab today) Following Discharge Instructio: Yes TCM Discharge Criteria Medication Knowledge: 07/05 Reviewed discharge meds, prednisone taper. She was taking her Metformin daily, it is ordered BID, I clearified this with her. 07/08 states she is still taking 1/2 tab of prednisone 07/14 Dr Franklin restarted HCTZ 25mg Transitional Care Comment: 07/02 She consents to the program. We discussed home and hospital meds, Bronchitis, with handout provided. 07/04 Call was brief, home visit scheduled for 1100 tomorrow. 07/05 Home visit, Discharge meds reviewed (she was taking metformin QD instead of BID), discussed oxygen use and safety, fall prevention. Handouts on O2 use in the home, O2 saftey, and fall prevention in older adults provided. Her home was not cluttered, open walkways, no throw rugs or trip hazzards, with two levels. The stairs she manages with ease. 07/08 Enc to discuss O2 use with PCP as she may not need it at lower elevation and that an overnoc oximetry test may be ordered. Enc use of O2 as ordered and to document O2 readings with her pulseox at home. 07/14 Wearing 1L NC, starts Pulm Rehab on Tuesday. Really wants to not wear oxygen. LEXY QUIROZ Jul 14, 2017 14:38
--- NOTE | 2017-07-18 10:19 | Transitional Care Management ---
Assessment Visit Type: Telephone Visit (07/18 George) Cardiac: WNL Except Cardiac Comment: 07/05 Reviewed meds, she is taking her BP a few times a day and keeping a record. BP during visit 149/87. Respiratory: WNL Except Respiratory Comment: 07/04 Wearing O2 all the time, sats go down with activity, but she does not feel short of breath. 07/05 She removes O2 for short tasks, lowest sat was 82% after taking out the trash. 07/08 At [facility] for PFT's and labs. States O2 up to 91% at home. Can have O2 delivered to [place], [place] for a vacation but states she doesn't want to go if she has to use O2 at that low elevation while having a vacation. Reports improved symptoms 07/14 She is very eager to stop using oxygen. She had an appt with Dr Franklin this week, who told her to keep using the oxygen. 07/18 Stated that she is still using O2 at 1L and finds when she goes downstairs (without O2) and returns up the stairs her sats are going down to 80-83% but when she puts her O2 back on she quickly returns to 90-91% I suggested that she not go up/down without her O2. She also stated when she went to Pul Rehab-they had her walk down a long hallway for 6 min without O2 and she dropped to 73%. They informed her she needed to cont wwearing her O2. She starts OPul Rehab tomorrow July 19. She also had a Pulmonary Test which sthey inofrmed her was COPD and states no one had diagnosed this previously. ? why Dr Franklin didn't call and tell her. I suggested she call Dr Franklin and ask her. GI: Nutrition: WNL Wt Gain/Loss: WNL Constipation?: No : WNL Musculoskeletal, Exercise: WNL Musculoskeletal, Excercise Com: 07/05 With the oxygen she can't go to her regular pool excercises, but we discussed alternatives. She will ask at the rec center for suggestions. 07/08 states she has less strength. Enc her participation in Pulm Rehab next week as their goal is to preserve function 07/14 Pulm rehab starts tuesday. Mobility/Falls: WNL Mobility Comment: 07/05 We discussed fall prevention, and increased risk of falls with O2 tubing. Integumentary: WNL Integumentary Comment: 07/08 She Called [facility] re: "big blood red spot on my hip". I visited in cardio after PFT"s and she has a yellow/green/blue/red area about 4"x3" on her RLQ where a lovenox inj was documented as being given. Reassured this was a fading bruise and not to be alarmed. Feeling of Well Being: WNL Feeling of Well Being Comment: 07/04 I feel really good except for this cough. 07/05 She really wants to not have the oxygen, and her cough persists. 07/08 Although arrangements are pending for delivery of O2 to her room in [place], she declines to have it if traveling. Reassured her they could have 2 Large replacement tanks and a concentrator delivered to her hotel prior to her arrival. Enc to f/u with PCP for direction. Socialization: WNL Socialization Comment: 07/04 good family support. Pain/Management: WNL Scheduled Follow-Up with Provi: No Questions for Future PCP Visit: 07/05 Need for continued O2, possible need for BP regimen changes since HCTZ has been stopped, Glucometer? Needed or Pending Tests: Yes (07/05 She has an order for labs. 07/08 getting lab today) Following Discharge Instructio: Yes TCM Discharge Criteria Medication Knowledge: 07/05 Reviewed discharge meds, prednisone taper. She was taking her Metformin daily, it is ordered BID, I clearified this with her. 07/08 states she is still taking 1/2 tab of prednisone 07/14 Dr Franklin restarted HCTZ 25mg Transitional Care Comment: 07/02 She consents to the program. We discussed home and hospital meds, Bronchitis, with handout provided. 07/04 Call was brief, home visit scheduled for 1100 tomorrow. 07/05 Home visit, Discharge meds reviewed (she was taking metformin QD instead of BID), discussed oxygen use and safety, fall prevention. Handouts on O2 use in the home, O2 saftey, and fall prevention in older adults provided. Her home was not cluttered, open walkways, no throw rugs or trip hazzards, with two levels. The stairs she manages with ease. 07/08 Enc to discuss O2 use with PCP as she may not need it at lower elevation and that an overnoc oximetry test may be ordered. Enc use of O2 as ordered and to document O2 readings with her pulseox at home. 07/14 Wearing 1L NC, starts Pulm Rehab on Tuesday. Really wants to not wear oxygen.s 07/18 George called asking alot of questions about her hospital stay and what has been happening since dc. Asked what she was diagnosed with on dc- I related from her DC summary that she had broncitis. She kept questioning about the new diagnosis of COPD and why sit wasns't diagnosed in hospital. I tried to expain to her that was due to the fact that the Pulmonary test was not stoll until past DC. She also wanted to know why she had a bruise on her hip and stated that she had been getting blood thineners while in hospital. I explained to her because of the blood thinners and injection that it had caused a small bruise where she was injected but that should be going away. She is to start Pul Rehab tomorrow. I encouraged her to call Dr Franklin with further questions about diagnosis. Copies to: BLUE FRANKLIN JOAN Jul 18, 2017 10:19
--- NOTE | 2017-07-25 13:54 | Transitional Care Management ---
Assessment Visit Type: Telephone Visit Spoke with: Alyssa Cardiac: WNL Except Cardiac Comment: 07/05 Reviewed meds, she is taking her BP a few times a day and keeping a record. BP during visit 149/87. Respiratory: WNL Except Respiratory Comment: 07/04 Wearing O2 all the time, sats go down with activity, but she does not feel short of breath. 07/05 She removes O2 for short tasks, lowest sat was 82% after taking out the trash. 07/08 At [facility] for PFT's and labs. States O2 up to 91% at home. Can have O2 delivered to [place], [place] for a vacation but states she doesn't want to go if she has to use O2 at that low elevation while having a vacation. Reports improved symptoms 07/14 She is very eager to stop using oxygen. She had an appt with Dr Franklin this week, who told her to keep using the oxygen. 07/18 Stated that she is still using O2 at 1L and finds when she goes downstairs (without O2) and returns up the stairs her sats are going down to 80-83% but when she puts her O2 back on she quickly returns to 90-91% I suggested that she not go up/down without her O2. She also stated when she went to Pul Rehab-they had her walk down a long hallway for 6 min without O2 and she dropped to 73%. They informed her she needed to cont wwearing her O2. She starts OP Rehab tomorrow July 19. She also had a Pulmonary Test which sthey inofrmed her was COPD and states no one had diagnosed this previously. ? why Dr Franklin didn't call and tell her. I suggested she call Dr Franklin and ask her. 07/25 She is on 1L and 2L with activity, has gone to pul rehab. She had me explain to her repeatedly why she needs oxygen, while she would tell me anecdotes of friends that were told they needed oxygen, but don't wear it, "and are fine." GI: Nutrition: WNL Wt Gain/Loss: WNL Constipation?: No : WNL Musculoskeletal, Exercise: WNL Musculoskeletal, Excercise Com: 07/05 With the oxygen she can't go to her regular pool excercises, but we discussed alternatives. [facility]. 07/08 states she has less strength. Enc her participation in Pulm Rehab next week as their goal is to preserve function 07/14 Pulm rehab starts tuesday. Mobility/Falls: WNL Mobility Comment: 07/05 We discussed fall prevention, and increased risk of falls with O2 tubing. Integumentary: WNL Integumentary Comment: 07/08 She Called TCN re: "big blood red spot on my hip". I visited in cardio after PFT"s and she has a yellow/green/blue/red area about 4"x3" on her RLQ where a lovenox inj was documented as being given. Reassured this was a fading bruise and not to be alarmed. Feeling of Well Being: WNL Feeling of Well Being Comment: 07/04 I feel really good except for this cough. 07/05 She really wants to not have the oxygen, and her cough persists. 07/08 Although arrangements are pending for delivery of O2 to her room in [place], she declines to have it if traveling. Reassured her they could have 2 Large replacement tanks and a concentrator delivered to her hotel prior to her arrival. Enc to f/u with PCP for direction. 07/25 "I feel like my life is over, having to wear oxygen." Socialization: WNL Socialization Comment: 07/04 good family support. Pain/Management: WNL Questions for Future PCP Visit: 07/05 Need for continued O2, possible need for BP regimen changes since HCTZ has been stopped, Glucometer? Needed or Pending Tests: Yes (07/05 She has an order for labs. 07/08 getting lab today) Following Discharge Instructio: Yes TCM Discharge Criteria Medication Knowledge: 07/05 Reviewed discharge meds, prednisone taper. She was taking her Metformin daily, it is ordered BID, I clearified this with her. 07/08 states she is still taking 1/2 tab of prednisone 07/14 Dr Franklin restarted HCTZ 25mg Transitional Care Comment: 07/02 She consents to the program. We discussed home and hospital meds, Bronchitis, with handout provided. 07/04 Call was brief, home visit scheduled for 1100 tomorrow. 07/05 Home visit, Discharge meds reviewed (she was taking metformin QD instead of BID), discussed oxygen use and safety, fall prevention. Handouts on O2 use in the home, O2 saftey, and fall prevention in older adults provided. Her home was not cluttered, open walkways, no throw rugs or trip hazzards, with two levels. The stairs she manages with ease. 07/08 Enc to discuss O2 use with PCP as she may not need it at lower elevation and that an overnoc oximetry test may be ordered. Enc use of O2 as ordered and to document O2 readings with her pulseox at home. 07/14 Wearing 1L NC, starts Pulm Rehab on Tuesday. Really wants to not wear oxygen.s 07/18 Alyssa called asking alot of questions about her hospital stay and what has been happening since dc. Asked what she was diagnosed with on dc- I related from her DC summary that she had broncitis. She kept questioning about the new diagnosis of COPD and why sit wasns't diagnosed in hospital. I tried to expain to her that was due to the fact that the Pulmonary test was not stoll until past DC. She also wanted to know why she had a bruise on her hip and stated that she had been getting blood thineners while in hospital. I explained to her because of the blood thinners and injection that it had caused a small bruise where she was injected but that should be going away. She is to start Pul Rehab tomorrow. I encouraged her to call Dr Franklin with further questions about diagnosis. 07/25 She is going to pulm rehab. She is very focused on her oxygen, questioning whether she needs it. She has made an appt with a Branding Machine Operator for 08/19, in hopes that she can not be on oxygen. LEXY QUIROZ July 25, 2017 13:54
--- NOTE | 2017-08-04 14:34 | Transitional Care Management ---
Assessment Visit Type: Telephone Visit Spoke with: Alyssa Cardiac: WNL Except Cardiac Comment: 07/05 Reviewed meds, she is taking her BP a few times a day and keeping a record. BP during visit 149/87. Respiratory: WNL Except Respiratory Comment: 07/04 Wearing O2 all the time, sats go down with activity, but she does not feel short of breath. 07/05 She removes O2 for short tasks, lowest sat was 82% after taking out the trash. 07/08 At [facility] for PFT's and labs. States O2 up to 91% at home. Can have O2 delivered to [place], [place] for a vacation but states she doesn't want to go if she has to use O2 at that low elevation while having a vacation. Reports improved symptoms 07/14 She is very eager to stop using oxygen. She had an appt with Dr Franklin this week, who told her to keep using the oxygen. 07/18 Stated that she is still using O2 at 1L and finds when she goes downstairs (without O2) and returns up the stairs her sats are going down to 80-83% but when she puts her O2 back on she quickly returns to 90-91% I suggested that she not go up/down without her O2. She also stated when she went to Pul Rehab-they had her walk down a long hallway for 6 min without O2 and she dropped to 73%. They informed her she needed to cont wwearing her O2. She starts OP Rehab tomorrow July 19. She also had a Pulmonary Test which sthey inofrmed her was COPD and states no one had diagnosed this previously. ? why Dr Franklin didn't call and tell her. I suggested she call Dr Franklin and ask her. 07/25 She is on 1L and 2L with activity, has gone to pul rehab. She had me explain to her repeatedly why she needs oxygen, while she would tell me anecdotes of friends that were told they needed oxygen, but don't wear it, "and are fine." 08/04 She has many questions, all pertaining to, do I really need oxygen, and when can I stop wearing it? GI: Nutrition: WNL Wt Gain/Loss: WNL Constipation?: No : WNL Musculoskeletal, Exercise: WNL Musculoskeletal, Excercise Com: 07/05 With the oxygen she can't go to her regular pool excercises, but we discussed alternatives. She will ask at the rec center for suggestions. 07/08 states she has less strength. Enc her participation in Pulm Rehab next week as their goal is to preserve function 07/14 Pulm rehab starts tuesday. Pulm rehab continues. Mobility/Falls: WNL Mobility Comment: 07/05 We discussed fall prevention, and increased risk of falls with O2 tubing. Integumentary: WNL Integumentary Comment: 07/08 She Called TCN re: "big blood red spot on my hip". I visited in cardio after PFT"s and she has a yellow/green/blue/red area about 4"x3" on her RLQ where a lovenox inj was documented as being given. Reassured this was a fading bruise and not to be alarmed. Feeling of Well Being: WNL Feeling of Well Being Comment: 07/04 I feel really good except for this cough. 07/05 She really wants to not have the oxygen, and her cough persists. 07/08 Although arrangements are pending for delivery of O2 to her room in [place], she declines to have it if traveling. Reassured her they could have 2 Large replacement tanks and a concentrator delivered to her hotel prior to her arrival. Enc to f/u with PCP for direction. 07/25 "I feel like my life is over, having to wear oxygen." 08/04 Depressed over having to wear oxygen. Socialization: WNL Socialization Comment: 07/04 good family support. Pain/Management: WNL Scheduled Follow-Up with Provi: Yes (08/04 Engrosser 09/14) Questions for Future PCP Visit: 07/05 Need for continued O2, possible need for BP regimen changes since HCTZ has been stopped, Glucometer? Needed or Pending Tests: No Following Discharge Instructio: Yes TCM Discharge Criteria Medication Knowledge: 07/05 Reviewed discharge meds, prednisone taper. She was taking her Metformin daily, it is ordered BID, I clearified this with her. 07/08 states she is still taking 1/2 tab of prednisone 07/14 Dr Franklin restarted HCTZ 25mg Transitional Care Comment: 07/02 She consents to the program. We discussed home and hospital meds, Bronchitis, with handout provided. 07/04 Call was brief, home visit scheduled for 1100 tomorrow. 07/05 Home visit, Discharge meds reviewed (she was taking metformin QD instead of BID), discussed oxygen use and safety, fall prevention. Handouts on O2 use in the home, O2 saftey, and fall prevention in older adults provided. Her home was not cluttered, open walkways, no throw rugs or trip hazzards, with two levels. The stairs she manages with ease. 07/08 Enc to discuss O2 use with PCP as she may not need it at lower elevation and that an overnoc oximetry test may be ordered. Enc use of O2 as ordered and to document O2 readings with her pulseox at home. 07/14 Wearing 1L NC, starts Pulm Rehab on Tuesday. Really wants to not wear oxygen.s 07/18 Alyssa called asking alot of questions about her hospital stay and what has been happening since dc. Asked what she was diagnosed with on dc- I related from her DC summary that she had broncitis. She kept questioning about the new diagnosis of COPD and why sit wasns't diagnosed in hospital. I tried to expain to her that was due to the fact that the Pulmonary test was not stoll until past DC. She also wanted to know why she had a bruise on her hip and stated that she had been getting blood thineners while in hospital. I explained to her because of the blood thinners and injection that it had caused a small bruise where she was injected but that should be going away. She is to start Pul Rehab tomorrow. I encouraged her to call Dr Franklin with further questions about diagnosis. 07/25 She is going to pulm rehab. She is very focused on her oxygen, questioning whether she needs it. She has made an appt with a Engrosser for 08/19, in hopes that she can not be on oxygen. 08/04 Pulm rehab continues. Still very focused on her oxygen, and wants me to tell her it is ok not to wear it. She has changed industrial controller, and will see him on 09/14. Copies to: BLUE FRANKLIN MICHAEL K August 04, 2017 14:33
--- NOTE | 2017-08-10 15:41 | Transitional Care Management ---
Assessment Cardiac: WNL Except Cardiac Comment: 07/05 Reviewed meds, she is taking her BP a few times a day and keeping a record. BP during visit 149/87. Respiratory: WNL Except Respiratory Comment: 07/04 Wearing O2 all the time, sats go down with activity, but she does not feel short of breath. 07/05 She removes O2 for short tasks, lowest sat was 82% after taking out the trash. 07/08 At [facility] for PFT's and labs. States O2 up to 91% at home. Can have O2 delivered to [place], [place] for a vacation but states she doesn't want to go if she has to use O2 at that low elevation while having a vacation. Reports improved symptoms 07/14 She is very eager to stop using oxygen. She had an appt with Dr Franklin this week, who told her to keep using the oxygen. 07/18 Stated that she is still using O2 at 1L and finds when she goes downstairs (without O2) and returns up the stairs her sats are going down to 80-83% but when she puts her O2 back on she quickly returns to 90-91% I suggested that she not go up/down without her O2. She also stated when she went to Pul Rehab-they had her walk down a long hallway for 6 min without O2 and she dropped to 73%. They informed her she needed to cont wwearing her O2. She starts OP Rehab tomorrow July 19. She also had a Pulmonary Test which sthey inofrmed her was COPD and states no one had diagnosed this previously. ? why Dr Franklin didn't call and tell her. I suggested she call Dr Franklin and ask her. 07/25 She is on 1L and 2L with activity, has gone to pul rehab. She had me explain to her repeatedly why she needs oxygen, while she would tell me anecdotes of friends that were told they needed oxygen, but don't wear it, "and are fine." 08/04 She has many questions, all pertaining to, do I really need oxygen, and when can I stop wearing it? GI: Nutrition: WNL Wt Gain/Loss: WNL Constipation?: No : WNL Musculoskeletal, Exercise: WNL Musculoskeletal, Excercise Com: 07/05 With the oxygen she can't go to her regular pool excercises, but we discussed alternatives. She will ask at the rec center for suggestions. 07/08 states she has less strength. Enc her participation in Pulm Rehab next week as their goal is to preserve function 07/14 Pulm rehab starts tuesday. Pulm rehab continues. Mobility/Falls: WNL Mobility Comment: 07/05 We discussed fall prevention, and increased risk of falls with O2 tubing. Integumentary: WNL Integumentary Comment: 07/08 She Called TCN re: "big blood red spot on my hip". I visited in cardio after PFT"s and she has a yellow/green/blue/red area about 4"x3" on her RLQ where a lovenox inj was documented as being given. Reassured this was a fading bruise and not to be alarmed. Feeling of Well Being: WNL Feeling of Well Being Comment: 07/04 I feel really good except for this cough. 07/05 She really wants to not have the oxygen, and her cough persists. 07/08 Although arrangements are pending for delivery of O2 to her room in [place], she declines to have it if traveling. Reassured her they could have 2 Large replacement tanks and a concentrator delivered to her hotel prior to her arrival. Enc to f/u with PCP for direction. 07/25 "I feel like my life is over, having to wear oxygen." 08/04 Depressed over having to wear oxygen. Socialization: WN Socialization Comment: 07/04 good family support. Pain/Management: WN Scheduled Follow-Up with Provi: Yes (08/04 Java Software Engineer 09/14) Questions for Future PCP Visit: 07/05 Need for continued O2, possible need for BP regimen changes since HCTZ has been stopped, Glucometer? Needed or Pending Tests: No Following Discharge Instructio: Yes TCM Discharge Criteria Medication Knowledge: 07/05 Reviewed discharge meds, prednisone taper. She was taking her Metformin daily, it is ordered BID, I clearified this with her. 07/08 states she is still taking 1/2 tab of prednisone 07/14 Dr Franklin restarted HCTZ 25mg Transitional Care Comment: 07/02 She consents to the program. We discussed home and hospital meds, Bronchitis, with handout provided. 07/04 Call was brief, home visit scheduled for 1100 tomorrow. 07/05 Home visit, Discharge meds reviewed (she was taking metformin QD instead of BID), discussed oxygen use and safety, fall prevention. Handouts on O2 use in the home, O2 saftey, and fall prevention in older adults provided. Her home was not cluttered, open walkways, no throw rugs or trip hazzards, with two levels. The stairs she manages with ease. 07/08 Enc to discuss O2 use with PCP as she may not need it at lower elevation and that an overnoc oximetry test may be ordered. Enc use of O2 as ordered and to document O2 readings with her pulseox at home. 07/14 Wearing 1L NC, starts Pulm Rehab on Tuesday. Really wants to not wear oxygen.s 07/18 Alyssa called asking alot of questions about her hospital stay and what has been happening since dc. Asked what she was diagnosed with on dc- I related from her DC summary that she had broncitis. She kept questioning about the new diagnosis of COPD and why sit wasns't diagnosed in hospital. I tried to expain to her that was due to the fact that the Pulmonary test was not stoll until past DC. She also wanted to know why she had a bruise on her hip and stated that she had been getting blood thineners while in hospital. I explained to her because of the blood thinners and injection that it had caused a small bruise where she was injected but that should be going away. She is to start Pul Rehab tomorrow. I encouraged her to call Dr Franklin with further questions about diagnosis. 07/25 She is going to pulm rehab. She is very focused on her oxygen, questioning whether she needs it. She has made an appt with a Java Software Engineer for 08/19, in hopes that she can not be on oxygen. 08/04 Pulm rehab continues. Still very focused on her oxygen, and wants me to tell her it is ok not to wear it. She has changed yard supervisor cotton gin, and will see him on 09/14. 08/10 Left message. LEXY QUIROZ August 10, 2017 15:41
--- NOTE | 2017-08-23 12:22 | Transitional Care Management ---
Assessment Cardiac: WNL Except Cardiac Comment: 07/05 Reviewed meds, she is taking her BP a few times a day and keeping a record. BP during visit 149/87. Respiratory: WNL Except Respiratory Comment: 07/04 Wearing O2 all the time, sats go down with activity, but she does not feel short of breath. 07/05 She removes O2 for short tasks, lowest sat was 82% after taking out the trash. 07/08 At [facility] for PFT's and labs. States O2 up to 91% at home. Can have O2 delivered to [place], [place] for a vacation but states she doesn't want to go if she has to use O2 at that low elevation while having a vacation. Reports improved symptoms 07/14 She is very eager to stop using oxygen. She had an appt with Dr Franklin this week, who told her to keep using the oxygen. 07/18 Stated that she is still using O2 at 1L and finds when she goes downstairs (without O2) and returns up the stairs her sats are going down to 80-83% but when she puts her O2 back on she quickly returns to 90-91% I suggested that she not go up/down without her O2. She also stated when she went to Pul Rehab-they had her walk down a long hallway for 6 min without O2 and she dropped to 73%. They informed her she needed to cont wwearing her O2. She starts OP Rehab tomorrow July 19. She also had a Pulmonary Test which sthey inofrmed her was COPD and states no one had diagnosed this previously. ? why Dr Franklin didn't call and tell her. I suggested she call Dr Franklin and ask her. 07/25 She is on 1L and 2L with activity, has gone to pul rehab. She had me explain to her repeatedly why she needs oxygen, while she would tell me anecdotes of friends that were told they needed oxygen, but don't wear it, "and are fine." 08/04 She has many questions, all pertaining to, do I really need oxygen, and when can I stop wearing it? GI: Nutrition: WNL Wt Gain/Loss: WNL Constipation?: No : WNL Musculoskeletal, Exercise: WNL Musculoskeletal, Excercise Com: 07/05 With the oxygen she can't go to her regular pool excercises, but we discussed alternatives. She will ask at the rec center for suggestions. 07/08 states she has less strength. Enc her participation in Pulm Rehab next week as their goal is to preserve function 07/14 Pulm rehab starts tuesday. Pulm rehab continues. Mobility/Falls: WNL Mobility Comment: 07/05 We discussed fall prevention, and increased risk of falls with O2 tubing. Integumentary: WNL Integumentary Comment: 07/08 She Called [facility]CN re: "big blood red spot on my hip". I visited in cardio after PFT"s and she has a yellow/green/blue/red area about 4"x3" on her RLQ where a lovenox inj was documented as being given. Reassured this was a fading bruise and not to be alarmed. Feeling of Well Being: WNL Feeling of Well Being Comment: 07/04 I feel really good except for this cough. 07/05 She really wants to not have the oxygen, and her cough persists. 07/08 Although arrangements are pending for delivery of O2 to her room in [place], she declines to have it if traveling. Reassured her they could have 2 Large replacement tanks and a concentrator delivered to her hotel prior to her arrival. Enc to f/u with PCP for direction. 07/25 "I feel like my life is over, having to wear oxygen." 08/04 Depressed over having to wear oxygen. Socialization: WN Socialization Comment: 07/04 good family support. Pain/Management: WN Scheduled Follow-Up with Provi: Yes (08/04 Business Information Analyst 09/14) Questions for Future PCP Visit: 07/05 Need for continued O2, possible need for BP regimen changes since HCTZ has been stopped, Glucometer? Needed or Pending Tests: No Following Discharge Instructio: Yes TCM Discharge Criteria Medication Knowledge: 07/05 Reviewed discharge meds, prednisone taper. She was taking her Metformin daily, it is ordered BID, I clearified this with her. 07/08 states she is still taking 1/2 tab of prednisone 07/14 Dr Franklin restarted HCTZ 25mg Transitional Care Comment: 07/02 She consents to the program. We discussed home and hospital meds, Bronchitis, with handout provided. 07/04 Call was brief, home visit scheduled for 1100 tomorrow. 07/05 Home visit, Discharge meds reviewed (she was taking metformin QD instead of BID), discussed oxygen use and safety, fall prevention. Handouts on O2 use in the home, O2 saftey, and fall prevention in older adults provided. Her home was not cluttered, open walkways, no throw rugs or trip hazzards, with two levels. The stairs she manages with ease. 07/08 Enc to discuss O2 use with PCP as she may not need it at lower elevation and that an overnoc oximetry test may be ordered. Enc use of O2 as ordered and to document O2 readings with her pulseox at home. 07/14 Wearing 1L NC, starts Pulm Rehab on Tuesday. Really wants to not wear oxygen.s 07/18 Alyssa called asking alot of questions about her hospital stay and what has been happening since dc. Asked what she was diagnosed with on dc- I related from her DC summary that she had broncitis. She kept questioning about the new diagnosis of COPD and why sit wasns't diagnosed in hospital. I tried to expain to her that was due to the fact that the Pulmonary test was not stoll until past DC. She also wanted to know why she had a bruise on her hip and stated that she had been getting blood thineners while in hospital. I explained to her because of the blood thinners and injection that it had caused a small bruise where she was injected but that should be going away. She is to start Pul Rehab tomorrow. I encouraged her to call Dr Franklin with further questions about diagnosis. 07/25 She is going to pulm rehab. She is very focused on her oxygen, questioning whether she needs it. She has made an appt with a Business Information Analyst for 08/19, in hopes that she can not be on oxygen. 08/04 Pulm rehab continues. Still very focused on her oxygen, and wants me to tell her it is ok not to wear it. She has changed marine insulator, and will see him on 09/14. 08/10 Left message. 08/18 Left message. 08/20 and 08/23 Unable to contact. will dc from program Copies to: BLUE FRANKLIN JOAN Jun 5, 2018 12:22
== END 2017-08-24 14:34 | disposition home or self-care (01) ==
LOC: TCM 06:49
PROVIDERS: ATTEND Nurse Practitioner
DX: Z02.9 Encounter for administrative examinations, unspecified (principal)

== ENCOUNTER → 2017-07-08 | Outpatient (CLI) | payer MEDICARE, OTHER ==
[2017-07-02 16:29] VITALS: BMI 29.9
[~2017-07-08] MED LIST changes: +METF-410 PO; -METF-411 PO
[2017-07-08 11:31] LABS: PLATELET COUNT, AUTOMATED 325 K/uL (150-450)
== END ==
LOC: LAB 11:13
PROVIDERS: ATTEND Family Medicine
DX: E83.42 Hypomagnesemia (principal); D75.1 Secondary polycythemia; E87.1 Hypo-osmolality and hyponatremia
CPT/HCPCS: 36415; 82310; 82374; 82435; 82565; 82947; 83735; 84132; 84295; 84520; 85025

== ENCOUNTER → 2017-07-08 | Outpatient (CLI) | payer MEDICARE, OTHER ==
[2017-07-02 16:29] VITALS: BMI 29.9
== END ==
LOC: RESP 04:16
PROVIDERS: ATTEND Family Medicine
DX: J98.4 Other disorders of lung (principal)
CPT/HCPCS: 94060; 94726; 94729

== ENCOUNTER → 2017-08-08 | Outpatient (CLI) | payer MEDICARE, OTHER ==
[2017-07-02 16:29] VITALS: BMI 29.9
[~2017-08-08] MED LIST changes: -METF-410 PO; +METF-411 PO
--- NOTE | 2017-08-08 16:47 | RADIOLOGY IMAGING REPORT ---
FACILITY: [facility] PATIENT NAME: Alyssa Harper : 1940 MR: [id number] V: [id number] EXAM DATE: ORDERING PHYSICIAN: BLUE MCCOLLUM TECHNOLOGIST: Location: [facility] Patient: Alyssa Harper : 1940 Visit/Account:[id number] Date of Sevice: 08/08/2017 CHEST PA AND LAT INDICATION: Pneumonia follow-up COMPARISON: 07/01/2017 FINDINGS: Heart size within normal limits. There is no focal infiltrate or lobar consolidation. Chronic interstitial changes in noted at the l dyllan bases. There is no pneumothorax or pleural effusion. IMPRESSION: 1. Interval clearing of bronchitic changes and clearing of subtle infiltrate within the right middle lobe Report Dictated By: Dom Marrufo at 08/08/2017 4:41 PM Report E-Signed By: Dom Marrufo at 08/08/2017 4:43 PM WSN:ROBERT
== END ==
LOC: RAD 15:11
PROVIDERS: ATTEND Family Medicine
DX: R91.8 Other nonspecific abnormal finding of lung field (principal)
CPT/HCPCS: 71046

== ENCOUNTER 2017-08-11 09:00 | Outpatient (RCR) | payer MEDICARE, OTHER ==
[2017-07-02 16:29] VITALS: BMI 29.9
== END 2017-08-15 ==
LOC: RESP 09:00
PROVIDERS: ATTEND Family Medicine
DX: R06.02 Shortness of breath (principal); J44.9 Chronic obstructive pulmonary disease, unspecified; J18.9 Pneumonia, unspecified organism
CPT/HCPCS: G0424 ×7

== ENCOUNTER → 2017-09-20 | Outpatient (RCR) | payer MEDICARE, OTHER ==
[2017-07-02 16:29] VITALS: BMI 29.9
== END ==
LOC: RESP 08-16 09:00
PROVIDERS: ATTEND Family Medicine
DX: J44.9 Chronic obstructive pulmonary disease, unspecified (principal); J18.9 Pneumonia, unspecified organism; R06.02 Shortness of breath
CPT/HCPCS: G0424 ×10

== ENCOUNTER → 2017-10-10 | Outpatient (CLI) | payer MEDICARE, OTHER ==
[2017-07-02 16:29] VITALS: BMI 29.9
--- NOTE | 2017-10-10 17:25 | RADIOLOGY IMAGING REPORT ---
FACILITY: [facility] - [place] PATIENT NAME: LUBA BRITO : [id number] MR: [id number] V: [id number] EXAM DATE: [id number] ORDERING PHYSICIAN: STEFFEN PLEITEZ TECHNOLOGIST: Alia Fabian PROCEDURE:BILATERAL DIGITAL SCREENING MAMMOGRAM WITH CAD ASSISTED INTERPRETATION & 3D TOMOSYNTHESIS COMPARISON:Prior mammograms 09/29/16, 09/17/15, 09/03/14, 08/24/13, 08/22/12, 07/29/11. INDICATIONS:SCREENING FINDINGS: A small amount of fibroglandular tissue is seen throughout the breasts. The parenchymal pattern has remained stable allowing for difference in mammographic technique & patient positioning. There is no evidence of malignant appearing mass, malignant appearing calcifications or other secondary sign of malignancy in either breast. DIAGNOSTIC CATEGORY 1--NEGATIVE. RECOMMENDATIONS: ROUTINE MAMMOGRAM AND CLINICAL EVALUATION. IMPRESSION: BIRADS 1: Negative. No significant abnormality is seen. Dictated by: Marva Josue M.D. on 10/10/2017 at 15:49 Transcribed by: HALEY on 10/10/2017 at 16:07 Approved by: Marva Josue M.D. on 10/10/2017 at 17:24 [facility]
== END ==
LOC: MAMO 01:29
PROVIDERS: ATTEND Obstetrics & Gynecology
DX: Z12.31 Encounter for screening mammogram for malignant neoplasm of breast (principal)
CPT/HCPCS: 77063; 77067

== ENCOUNTER → 2017-10-25 | Outpatient (CLI) | payer MEDICARE, OTHER ==
[2017-07-02 16:29] VITALS: BMI 29.9
[2017-10-25 15:11] LABS: PLATELET COUNT, AUTOMATED 227 K/uL (150-450)
== END ==
LOC: LAB 14:50
PROVIDERS: ATTEND Family Medicine
DX: R79.0 Abnormal level of blood mineral (principal); R71.8 Other abnormality of red blood cells
CPT/HCPCS: 36415; 82728; 83540; 85025

== ENCOUNTER 2018-02-10 05:45 | Emergency (ER) | payer MEDICARE, OTHER ==
[2017-07-02 16:29] VITALS: Wt 77.1 kg
[~2018-02-10 05:45] MED LIST changes: -METF-411 PO; +METF-450 PO
[2018-02-10] MEDS ORDERED: HYDR12.561 PO (06:00)
--- NOTE | 2018-02-10 06:10 | ER Report ---
History and Physical Time Seen By MD: 06:10 Hx. of Stated Complaint: patient was woke up with dizziness, pateint was reading 86%, pulse reading high, and then she checked her blood pressure was reading 150's over 90's. patient kept getting all different readings, and decided to get it checked. (ZANDER PIPER MD) HPI/ROS CHIEF COMPLAINT: Dizziness, elevated blood pressure HISTORY OF PRESENT ILLNESS: This is a 77-year-old female. She woke this morning feeling very dizzy. She realized her oxygen was off. She put her nasal cannula on and measured her oxygen which was 86% and her pulse was little elevated. She got up to drink some water and was still feeling dizzy so she checked her blood pressure and it was high. She thinks it was about 150 over 90s. This worried her and she kept checking it getting all kinds of different readings this morning and this worried her as well. Her pulse started to go up as well and to the 100s. She still feels dizzy. The dizziness is more of a nonspecific off-balance feeling. She she denies vertigo. She denies near syncopal. She has been healthy otherwise. She did eat at her daughter's house for Thanksgiving and states her daughter cooks with a lot of salt. She denies any chest pain. She denies any shortness of breath. She has had no fevers or chills or cough worse than normal for her. She wears oxygen because of her COPD. (ZANDER PIPER MD) Allergies: Coded Allergies: Penicillins (Verified Allergy, Intermediate, FELT FUNNY, 02/10/18) Uncoded Allergies: msg (Adverse Reaction, Intermediate, HEADACHE, 01/24/12) Home Meds Reported Medications Hydrochlorothiazide (HYDROCHLOROTHIAZIDE) 12.5 Mg Tablet, PO QDAY, TAB 02/10/18 Metformin Hcl (METFORMIN HCL) 500 Mg Tablet, 1 TAB PO QDAY, TAB 07/01/17 Rosuvastatin Calcium (CRESTOR) 5 Mg Tablet, 5 MG PO QDAY 07/01/17 Lisinopril (Lisinopril) 10 Mg Tablet, 10 MG PO QDAY 01/18/12 Discontinued Scripts Prednisone (PREDNISONE) 20 Mg Tablet, 20 MG PO QDAY, #5 1 pill a day for 3 days, then 1/2 pill a day for 3 days Prov:MEGAN GARCIA MD 07/03/17 Levofloxacin 750 Mg Tab (LEVOFLOXACIN 750 MG TAB) 750 Mg Tablet, 750 MG PO QDAY@1800, #3 Prov:MEAGN GARCIA MD 07/03/17 Ciprofloxacin Hcl (CIPROFLOXACIN HCL) 2.5 Ml Drops, 0 ML OU QID, #1 BOTTLE Continue until eyes are clear for 48 hours or have taken for 5 days. Prov:MEGAN GARCIA MD 07/03/17 Reviewed Nurses Notes: Yes (ZANDER PIPER MD) Hx Smoking: Yes (PPD) Smoking Status: Former Smoker Exposure to Second Hand Smoke?: No Hx Substance Use Disorder: No Hx Alcohol Use: No (ZANDER PIPER MD) Constitutional Vital Sign - Last 24 Hours 02/10/18 02/10/18 02/10/18 02/10/18 05:45 05:50 05:51 05:52 Temp 97.8 Pulse ??? 78 Resp 16 B/P (MAP) 184/112 184/112 Pulse Ox 97 O2 Delivery Room Air O2 Flow Rate 2.0 02/10/18 02/10/18 02/10/18 02/10/18 06:00 06:15 06:30 06:45 Pulse 71 76 B/P (MAP) 154/77 151/81 Pulse Ox 94 94 O2 Delivery Nasal Cannula Nasal Cannula 02/10/18 02/10/18 02/10/18 02/10/18 07:00 07:05 07:10 07:30 Pulse 62 64 B/P (MAP) 160/79 137/95 (109) Pulse Ox 96 97 O2 Delivery Nasal Cannula Nasal Cannula O2 Flow Rate 2 2 02/10/18 02/10/18 07:40 08:00 Pulse 66 B/P (MAP) 129/78 (95) Pulse Ox 96 O2 Delivery Nasal Cannula O2 Flow Rate 2 (STEFFEN POWELL MD) Physical Exam General Appearance: The patient is alert. No acute distress. Non-toxic in appearance. Eyes: Pupils are equal, round. Reactive to light. No pallor, injection or icterus. Extraocular movements are intact. No nystagmus. Negative impulse testing. Negative cover-uncover testing. ENT: Mucous membranes are moist. Normal oral mucosa. Posterior oropharynx is normal. Neck: Supple and non tender. Respiratory: Lungs are clear to auscultation. Cardiovascular: Regular rate and rhythm. No murmurs, gallops or rubs. Normal capillary refill. Gastrointestinal: Abdomen is soft and non tender. Nondistended. Normal active bowel sounds. Neurological: Alert and oriented x3. No neurologic deficits in the cranial nerves. Moving all extremities without weakness or numbness. Skin: Warm and dry. No rashes. Musculoskeletal: No tenderness in palpation of the cervical, thoracic and lumbar spine. DIFFERENTIAL DIAGNOSIS: After history and physical exam, differential diagnosis was considered for dizziness and elevated blood pressure ([facility] SERVICES[facility] MD) Medical Decision Making Data Points Result Diagram: 02/10/18 0651 02/10/18 0651 Laboratory Hematology Test 02/10/18 06:51 Red Blood Count 5.10 M/uL (4.17-5.56) Mean Corpuscular Volume 87.7 fL (80.0-96.0) Mean Corpuscular Hemoglobin 29.5 pg (26.0-33.0) Mean Corpuscular Hemoglobin Concent 33.7 g/dL (32.0-36.0) Red Cell Distribution Width 12.6 % (11.5-14.5) Mean Platelet Volume 7.2 fL (7.2-11.1) Neutrophils (%) (Auto) 72.3 % (39.4-72.5) Lymphocytes (%) (Auto) 17.7 % (17.6-49.6) Monocytes (%) (Auto) 6.9 % (4.1-12.4) Eosinophils (%) (Auto) 2.6 % (0.4-6.7) Basophils (%) (Auto) 0.5 % (0.3-1.4) Nucleated RBC Relative Count (auto) 0.0 /100WBC Neutrophils # (Auto) 5.1 K/uL (2.0-7.4) Lymphocytes # (Auto) 1.3 K/uL (1.3-3.6) Monocytes # (Auto) 0.5 K/uL (0.3-1.0) Eosinophils # (Auto) 0.2 K/uL (0.0-0.5) Basophils # (Auto) 0.0 K/uL (0.0-0.1) Nucleated RBC Absolute Count (auto) 0.00 K/uL Sodium Level 135 mmol/L (137-145) Potassium Level 4.0 mmol/L (3.5-5.0) Chloride Level 94 mmol/L (98-107) Carbon Dioxide Level 32 mmol/L (22-31) Blood Urea Nitrogen 15 mg/dl (7-18) Creatinine 0.80 mg/dl (0.52-1.04) Glomerular Filtration Rate Calc > 60.0 Random Glucose 124 mg/dl (75-110) Calcium Level 9.1 mg/dl (8.4-10.2) Total Bilirubin 0.6 mg/dl (0.2-1.3) Aspartate Amino Transf (AST/SGOT) 22 U/L (0-35) Alanine Aminotransferase (ALT/SGPT) 31 U/L (0-56) Alkaline Phosphatase 52 U/L (0-126) Troponin I < 0.012 ng/ml Total Protein 7.3 g/dl (6.3-8.2) Albumin 4.0 g/dl (3.5-5.0) Chemistry Test 02/10/18 06:51 White Blood Count 7.1 k/uL (4.5-11.0) Red Blood Count 5.10 M/uL (4.17-5.56) Hemoglobin 15.1 g/dL (12.0-16.0) Hematocrit 44.7 % (34.0-47.0) Mean Corpuscular Volume 87.7 fL (80.0-96.0) Mean Corpuscular Hemoglobin 29.5 pg (26.0-33.0) Mean Corpuscular Hemoglobin Concent 33.7 g/dL (32.0-36.0) Red Cell Distribution Width 12.6 % (11.5-14.5) Platelet Count 232 K/uL (150-450) Mean Platelet Volume 7.2 fL (7.2-11.1) Neutrophils (%) (Auto) 72.3 % (39.4-72.5) Lymphocytes (%) (Auto) 17.7 % (17.6-49.6) Monocytes (%) (Auto) 6.9 % (4.1-12.4) Eosinophils (%) (Auto) 2.6 % (0.4-6.7) Basophils (%) (Auto) 0.5 % (0.3-1.4) Nucleated RBC Relative Count (auto) 0.0 /100WBC Neutrophils # (Auto) 5.1 K/uL (2.0-7.4) Lymphocytes # (Auto) 1.3 K/uL (1.3-3.6) Monocytes # (Auto) 0.5 K/uL (0.3-1.0) Eosinophils # (Auto) 0.2 K/uL (0.0-0.5) Basophils # (Auto) 0.0 K/uL (0.0-0.1) Nucleated RBC Absolute Count (auto) 0.00 K/uL Glomerular Filtration Rate Calc > 60.0 Calcium Level 9.1 mg/dl (8.4-10.2) Total Bilirubin 0.6 mg/dl (0.2-1.3) Aspartate Amino Transf (AST/SGOT) 22 U/L (0-35) Alanine Aminotransferase (ALT/SGPT) 31 U/L (0-56) Alkaline Phosphatase 52 U/L (0-126) Troponin I < 0.012 ng/ml Total Protein 7.3 g/dl (6.3-8.2) Albumin 4.0 g/dl (3.5-5.0) (STEFFEN POWELL MD) EKG/Imaging EKG Interpretation 12 lead EKG: Rhythm: normal sinus rhythm, rate 69 [place]: normal QRS: normal ST segments: normal (ZANDER PIPER MD) EKG Interpretation EKG shows normal sinus rhythm. Monitor Interpretation: Normal Sinus Rhythm Imaging FACILITY: [facility] - [place] PATIENT NAME: Alyssa Harper : 1940 MR: [id number] V: [id number] EXAM DATE: ORDERING PHYSICIAN: ZANDER PIPER TECHNOLOGIST: Location: [facility] Patient: Alyssa Harper : 1940 Visit/Account:[id number] Date of Sevice: 02/10/2018 Technique: CHEST SINGLE AP HISTORY: dizziness, elevated blood pressure Comparison studies: Chest radiographs August 08, 2017 FINDINGS: There is no acute airspace consolidation. Persistent interstitial lung markings as well as prominence of the central bronchopulmonary vasculature is again identified. Minimal left basilar atelectasis is noted. The cardiac silhouette is unchanged. IMPRESSION: 1. No acute cardiopulmonary process. 2. Chronic lung findings as above. Report Dictated By: Jesús Lu DO at 02/10/2018 7:49 AM Report E-Signed By: Jesús Lu DO at 02/10/2018 7:51 AM WSN:[id number] (STEFFEN POWELL MD) ED Course/Re-evaluation ED Course I went ahead and had the patient take her regular morning medicines, lisinopril 5 mg oral dose, and hydrochlorothiazide 25 mg oral dose. I reviewed typical treatment for elevated blood pressure and dizziness here in the ER. We will get an EKG, chest x-ray, labs including blood work and urinalysis. Based on my HiNTs exam, I am not concerned about a stroke. This does not appear to be a positional vertigo as well. (ZANDER PIPER MD) ED Course 02/10/2018 7:59:48 am patient feeling improved at this time current blood pressure is 137/95. Plan will be discharge home and follow-up with primary care provider next week. Decision to Disposition Date: Feb 10, 2018 Decision to Disposition Time: 08:02 Turned Over Accepted care of patient at 0700 (STEFFEN POWELL MD) Depart Departure Latest Vital Signs Vital Signs Date Time Temp Pulse Resp B/P (MAP) Pulse Ox O2 Delivery O2 Flow Rate FiO2 02/10/18 08:00 129/78 (95) 02/10/18 07:40 66 96 Nasal Cannula 2 02/10/18 05:50 97.8 16 (STEFFEN POWELL MD) Impression: Primary Impression: HTN (hypertension) Condition: Improved Disposition: HOME OR SELF-CARE Referrals: BLUE MCCOLLUM DO (PCP) 1 Week for Blood pressure check Patient Instructions: Chronic Hypertension (ED) Additional Instructions: Take your normal dose of lisinopril today, do not take your dose of hydrochlorothiazide today. Resume all normal medications tomorrow Problem Qualifiers Primary Impression: HTN (hypertension) Hypertension type: essential hypertension Qualified Codes: I10 - Essential (primary) hypertension ZANDER PIPER MD Feb 10, 2018 06:10 STEFFEN POWELL MD Feb 10, 2018 07:10
[2018-02-10] MEDS ORDERED: HYDROCHLOROTHIAZIDE 25 MG TAB ONE (06:43)
[2018-02-10] MEDS ORDERED: LISINOPRIL 10 MG TAB ONE (06:43)
--- NOTE | 2018-02-10 07:02 | EKG ---
FACILITY: [facility] - [place] PATIENT NAME: LUBA BRITO : [id number] MR: [id number] V: [id number] EXAM DATE: ORDERING PHYSICIAN: ZANDER PIPER TECHNOLOGIST: DORIS Test Reason : DIZZINESS Blood Pressure : / mmHG Vent. Rate : 069 BPM Atrial Rate : 069 BPM P-R Int : 204 ms QRS Dur : 084 ms QT Int : 380 ms P-R-T Axes : 054 -03 052 degrees QTc Int : 407 ms Normal sinus rhythm Possible Left atrial enlargement Borderline ECG When compared with ECG of 01-JUL-2017 17:30, Nonspecific T wave abnormality no longer evident in Inferior leads Confirmed by SHARI ARREGUIN ([id number]) on 02/10/2018 9:59:52 AM Referred By: SAUNDRA Confirmed By:SHARI ARREGUIN
[2018-02-10 07:11] LABS: PLATELET COUNT, AUTOMATED 232 K/uL (150-450)
--- NOTE | 2018-02-10 07:55 | RADIOLOGY IMAGING REPORT ---
FACILITY: [facility] [place] PATIENT NAME: Alyssa Harper : 1940 MR: [id number] V: [id number] EXAM DATE: ORDERING PHYSICIAN: ZANDER PIPER TECHNOLOGIST: Location: [facility] [place] Patient: Alyssa Harper : 1940 Visit/Account:[id number] Date of Sevice: 02/10/2018 Technique: CHEST SINGLE AP HISTORY: dizziness, elevated blood pressure Comparison studies: Chest radiographs August 08, 2017 FINDINGS: There is no acute airspace consolidation. Persistent interstitial lung markings as well as prominence of the central bronchopulmonary vasculature is again identified. Minimal left basilar atel ectasis is noted. The cardiac silhouette is unchanged. IMPRESSION: 1. No acute cardiopulmonary process. 2. Chronic lung findings as above. Report Dictated By: Jesús Lu DO at 02/10/2018 7:49 AM Report E-Signed By: Jesús Lu DO at 02/10/2018 7:51 AM WSN:[id number]
[2018-02-10 08:00] VITALS: BP 129/78
== END 2018-02-10 08:15 | disposition home or self-care (01) ==
LOC: ER 06:08
DX: I10 Essential (primary) hypertension (principal)
CPT/HCPCS: 71045; 84484; 85025; 93005; 99284; A9270; 82040; 82247; 82310; 82374; 82435; 82565; 82947; 84075; 84132; 84155; 84295; 84450; 84460; 84520

== ENCOUNTER → 2018-03-20 | Outpatient (CLI) | payer MEDICARE, OTHER ==
[2017-07-02 16:29] VITALS: BMI 29.9
[~2018-03-20] MED LIST changes: +HYDR12.561 PO
== END ==
LOC: LAB 14:51
PROVIDERS: ATTEND Family Medicine
DX: N39.0 Urinary tract infection, site not specified (principal)
CPT/HCPCS: 81001; 87077; 87088; 87186

== ENCOUNTER 2018-04-18 15:15 | Outpatient (RCR) | payer MEDICARE, OTHER ==
[2017-07-02 16:29] VITALS: BMI 29.9
--- NOTE | 2018-03-29 07:46 | PT PLAN OF CARE ---
Physician: Rodrigo Mckeon MD Patient is being seen: 2x/week Therapist: 2x/week Medical Diagnosis: LBP Treatment Diagnosis: LBP Date of Onset: 03/21/10 Date of Initial Evaluation: 02/07/18 Date patient was last seen: 03/28/18 Number of treatments: 10 Number of cancellations/No shows: 0 INTERVENTIONS: Manual Therapy/STM/MET Strengthening/condition Range of Motion Spinal Stabilization Stretching Posture/Body mechanics Gait Trg/Balance Trg Home Exercise Program GOALS: 4-6 weeks: Alyssa shops a full trip at [facility] with an upright trunk, with minimal to no LBP. PATIENT'S GOAL: No hip pain (met) and get off the floor independently (not met). Status of Patient's Goals: Slowly progressing Patient Compliance: Fair Prognosis: Excellent Reasons for continuing therapy: This is a progress note for Alyssa Harper. She reports that she feels like the low back pain gets better and then it gets worse and she would like that the pain would go completely away. However, she reports that she has not performed her specific exercise consistently. She reports that she would perform it maybe once a day if she remembered over the last few weeks. She continues to demonstrate directional preference for flexion based exercise with her classification as anterior derangement as we can abolish her low back pain with those principles. However, I educated her that she must perform the specific exercise every 2 hours to completely abolish her pain for two weeks and then she could return to performing them twice a day and she felt that she could perform the specific exercise that much for the next two weeks so that she can completely abolish her low back pain. Therefore, we will continue with PT for two more weeks and if she performs the exercise like she is suppose to the pain will abolish and if she does not put the effort in we will discharge from PT. Since, based on the research and how she is responding she has a 90% chance that it will go away in two weeks and if it does not then we will continue to push something that she does not want to put the effort in to achieve. Posture: Anterior R ilium, mild R lateral shift. ROM: AROM lumbar spine 50% flexion, minimal extension. L hip PROM WNL Palpation: Tight lumbar extensors. Special Tests: DTR's 2/3 Quads, Achilles tendons. Mobility: Difficulty with rolling supine/prone due to weak trunk. If you have any questions, please contact me at [phone]. Thank you, Mirza Live PT, DPT JOSE RAMON
--- NOTE | 2018-04-19 13:51 | PT PLAN OF CARE ---
Physician: Rodrigo Mckeon MD Patient is being seen: 2x/week Therapist: Mirza Live, PT, DPT Medical Diagnosis: LBP Treatment Diagnosis: LBP Date of Onset: 03/21/10 Date of Initial Evaluation: 02/07/18 Date patient was last seen: 04/18/18 Number of treatments: 15 Number of cancellations/No shows: 1 INTERVENTIONS: Manual Therapy/STM/MET Strengthening/condition Range of Motion Spinal Stabilization Stretching Posture/Body mechanics Gait Trg/Balance Trg Home Exercise Program GOALS: 4-6 weeks: Alyssa shops a full trip at [facility] with an upright trunk, with minimal to no LBP. PATIENT'S GOAL: No hip pain (met) and get off the floor independently (not met). Status of Patient's Goals: Slowly progressing Patient Compliance: Fair Prognosis: Excellent Reasons for continuing therapy: This is a discharge note for Alyssa Harper. She reports that she is doing well. She denies any low back pain. She reports that she feels like she is confident with her home exercise program. She feels like she is ready to be discharge and feels like she has returned to her prior of function prior to the pain. She has progressed well within PT and has demonstrated abolished low back pain, independent with specific exercise, educated on how to prevent reoccurrences in the future, and has met all of her goals. As a result, he will be discharged from PT. ROM: AROM lumbar spine within normal limits Palpation: no longer TTP If you have any questions, please contact me at [phone]. Thank you, Mirza Live, PT, DPT [facility]
== END 2018-04-18 18:00 | disposition home or self-care (01) ==
LOC: PT 15:15
PROVIDERS: ATTEND Orthopaedic Surgery
DX: M25.552 Pain in left hip (principal); M16.12 Unilateral primary osteoarthritis, left hip; M54.5 Low back pain

== ENCOUNTER → 2018-08-08 | Outpatient (CLI) | payer MEDICARE, OTHER ==
[2017-07-02 16:29] VITALS: BMI 29.9
--- NOTE | 2018-08-08 17:34 | RADIOLOGY IMAGING REPORT ---
FACILITY: [facility] [place] PATIENT NAME: Alyssa Harper : 1940 MR: [id number] V: [id number] EXAM DATE: ORDERING PHYSICIAN: BLUE MCCOLLUM TECHNOLOGIST: Location: [facility] Patient: Alyssa Harper : 1940 Visit/Account:[id number] Date of Sevice: 08/08/2018 CAROTID HISTORY: Carotid bruits COMPARISON: January 07, 2012 FINDINGS: Grayscale, duplex and color Doppler interrogation of the extracranial carotid and vertebral arteries was performed bilateral. On the right, peak systolic velocities within the common and internal carotid arteries are 88 and 1:3 0 cm/sec respectively. Small amount of hard plaque is seen in the right carotid bulb extending into the right ECA. Antegrade flow within the common, internal and external carotid arteries as well as v ertebral artery. ICA/CCA ratio 2.35. On the left, peak systolic velocities within the common and internal carotid arteries are 111 and 112 cm/sec respectively. There is a moderate amount of plaque at the left carotid bulb extending into t he left ECA. Antegrade flow within the common, internal and external carotid arteries as well as serjio tebral artery. ICA/CCA ratio 1.08. IMPRESSION: Her plaque is seen at the right carotid bulb extending into the right ECA. An elevated peak systolic velocity in the right ICA however is consistent with a 50-69% category stenosis. Moderate plaque identified left carotid bulb extending into the left ECA however the peak systolic ve locity in the left ICA is consistent with a less than 50% stenosis Velocity criteria are extrapolated from diameter data as defined by the Society of Radiologists in [place] Consensus Conference Radiology 2003; 229;340-346 Report Dictated By: Marva Josue MD at 08/08/2018 5:26 PM Report E-Signed By: Marva Josue MD at 08/08/2018 5:29 PM HEIDIN:LIT
== END ==
LOC: US 07:35
PROVIDERS: ATTEND Family Medicine
DX: R09.89 Other specified symptoms and signs involving the circulatory and respiratory systems (principal)
CPT/HCPCS: 93880

== ENCOUNTER → 2018-10-24 | Outpatient (CLI) | payer MEDICARE, OTHER ==
[2017-07-02 16:29] VITALS: BMI 29.9
[~2018-10-24] MED LIST changes: +VIT-9 PO
== END ==
LOC: LAB 10:56
PROVIDERS: ATTEND Surgery
DX: N60.32 Fibrosclerosis of left breast (principal)
CPT/HCPCS: 88305